=== PATIENT | female | born 1930 | race Caucasian/White ===

== ENCOUNTER 2016-06-27 13:56 | Emergency (ER) | payer OTHER ==
[~2016-06-27] VITALS: Ht 152.4 cm; Wt 75.0 kg
[~2016-06-27 13:56] MED LIST: ACET325T96 PO; ATV/1 PO; BISA10SU3 PR; EFFSR75 PO; ERGO500037 PO; GLC/500 PO; LORA10TA5 PO; LOSA25TA18 PO; LPT/40 PO; MAGN400T24 PO; MELO7.5T5 PO; MOML PO; MULTTAB PO; NSNN50; PANT40TA PO
--- NOTE | 2016-06-27 14:43 | DIAGNOSTIC IMAGING REPORT ---
CHEST ONE VIEW PORTABLE CLINICAL HISTORY: Respiratory distress. Dyspnea. COMPARISON STUDY: Chest radiograph April 21, 2013. FINDINGS: A dual lead left pacemaker and lumbar spine fusion hardware is incidentally noted. Lung volumes are diminished. No consolidation is identified. There is no evidence of pulmonary edema. There is mild cardiomegaly. IMPRESSION: 1. No acute cardiopulmonary findings. 2. Diminished lung volumes. 3. Mild cardiomegaly without evidence of pulmonary edema. Electronically signed by: Ariel Dominguez M.D. 06/27/2016 2:42 PM Dictated Date/Time: 06/27/2016 2:41 PM
[2016-06-27 14:48] VITALS: Ht 152.4 cm; Wt 75.0 kg
[2016-06-27] MEDS ORDERED: OXYB15TA12 PO (14:59)
[2016-06-27] MEDS ORDERED: NYSTCRE11 TOP (14:59)
[2016-06-27] MEDS ORDERED: TRAM-10 PO (14:59)
[2016-06-27] MEDS ORDERED: POLY335019 PO (14:59)
[2016-06-27] MEDS ORDERED: FLUT0.15 NAE (14:59)
[2016-06-27] MEDS ORDERED: ALBUAER INH (14:59)
[2016-06-27] MEDS ORDERED: IBUP600T44 PO (14:59)
[2016-06-27] MEDS ORDERED: CYAN10005 PO (14:59)
[2016-06-27] MEDS ORDERED: CHOL1000 PO (14:59)
[2016-06-27] MEDS ORDERED: CLR10 PO (14:59)
[2016-06-27] MEDS ORDERED: METF-384 PO (14:59)
[2016-06-27] MEDS ORDERED: TMF75 PO (14:59)
[2016-06-27] MEDS ORDERED: PYRI100T4 PO (14:59)
[2016-06-27 15:03] VITALS: O2SAT 96
[2016-06-27 15:18] LABS: BASO % 0.1 %; BASO ABS # 0.01 K/uL (0-0.2); COMPLETE YES; EOS % 1.8 %; HEMATOCRIT 30.1 % (37-47); IG% 0.3 %; LYMPH % 21.1 %; LYMPH ABS # 1.49 K/uL (1.2-3.4); MEAN CELL VOLUME 88.3 fL (80-100); MEAN CORPUSCULAR HEMOGLOBIN 28.4 pg (25-34); MEAN CORPUSCULAR HGB CONC 32.2 g/dl (32-36); MONO % 9.9 %; NEUT % 66.8 %; PLATELET COUNT 227 K/uL (130-400); RED BLOOD COUNT 3.41 M/uL (4.2-5.4); WHITE BLOOD COUNT 7.07 K/uL (4.8-10.8)
[2016-06-27 15:38] LABS: ALT/SGPT 28 U/L (12-78); BLOOD UREA NITROGEN 21 mg/dl (7-18); BUN/CREATININE RATIO 22.5 (10-20); CALCIUM 8.7 mg/dl (8.5-10.1); CARBON DIOXIDE 24 mmol/L (21-32); CHLORIDE 107 mmol/L (98-107); CREATININE 0.93 mg/dl (0.60-1.20); GLUCOSE 157 mg/dl (70-99); SODIUM 144 mmol/L (136-145)
[2016-06-27 15:42] LABS: ALB/GLOB RATIO 1.2 (0.9-2); ALKALINE PHOSPHATASE 92 U/L (45-117); AST/SGOT 29 U/L (15-37)
[2016-06-27 16:03] VITALS: TEMP 36.7
[2016-06-27] MEDS ORDERED: SODIUM CHLORIDE 0.9% 500ML 500 ML IV STA (16:19)
[2016-06-27 17:33] LABS: URINE APPEARANCE CLEAR (CLEAR); URINE BILIRUBIN NEG (NEG); URINE COLOR YELLOW; URINE NITRITE NEG (NEG); URINE SPECIFIC GRAVITY 1.019 (1.000-1.030); UROBILINOGEN NEG (NEG)
[2016-06-27 17:38] LABS: MANUAL MICROSCOPIC REQUIRED? NO; REVIEW REQ? NO
[2016-06-27 20:05] VITALS: BP 141/68; PULSE 84; O2SAT 94
[2016-06-27] MEDS ORDERED: ASPI81TA28 PO (21:52)
[2016-06-27] MEDS ORDERED: INSDGI SC (22:02)
[2016-06-27] MEDS ORDERED: METO-217 PO (22:05)
[2016-06-27] MEDS ORDERED: MONT1TAB3 PO (22:08)
[2016-06-27] MEDS ORDERED: LINA1CAP PO (22:09)
--- NOTE | 2016-06-27 22:59 | EMERGENCY ROOM VISIT NOTE ---
History Report prepared by Mateoibkerri: Emmie Koehler Under the Supervision of: Dr. Sam Pollock M.D. First contact with patient: 14:07 Chief Complaint: ILLNESS Stated Complaint: NAUSEA, DEEP COUGH, DIZZY, HEADACHE History of Present Illness The patient is a 86 year old female who presents to the Emergency Room with complaints of a worsening cough for the past 10 days. Her primary care doctor's office at [facility] diagnosed her with the flu 10 days ago and placed her on Tamiflu, which she last took early this morning. The Tamiflu has provided minimal relief for her symptoms. She currently complains of a "deep cough", nausea, dizziness and an intermittent headache. She notes she was told she had a fever when she saw her doctor 10 days ago, but she's not sure if she has had a fever since then. The patient is on a daily baby Aspirin but denies taking any other blood thinners. She admits to some neck pain currently, but states this is chronic for her due to "my posture". She lives alone and denies any recent sick contacts. The patient also denies LOC, chills, diaphoresis, visual changes, chest pain, breathing difficulties, vomiting, abdominal pain, back pain, melena, hematochezia, urinary symptoms, numbness, lymphadenopathy, rash, increased swelling in her legs or other complaints. 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 A total of ten systems were reviewed and were otherwise negative. Past Medical & Surgical Medical Problems: (1) ATRIOVENT BLOCK COMPLETE (2) CARPAL TUNNEL SYNDROME (3) Chronic kidney disease stage 2 (4) Coronary artery disease (5) Diabetes mellitus type 2 (6) Diverticulosis of colon without diverticulitis (7) Dyslipidemia (8) Gastroesophageal reflux disease (9) GENERAL OSTEOARTHROSIS (10) Major depressive disorder (11) Pacemaker (12) Pulmonary embolism (13) Severe sepsis (14) Urinary tract infection Surgical Problems: (1) Status post appendectomy (2) Status post cardiac pacemaker procedure Family History Cancer Diabetes mellitus Hypertension Social History Smoking Status: Never Smoker Smokeless Tobacco Use: No Alcohol Use: none Drug Use: none Marital Status: Housing Status: lives alone, assisted living Occupation Status: retired Current/Historical Medications Scheduled Aspirin (Aspirin Ec), 81 MG PO DAILY Atorvastatin (Lipitor), 40 MG PO HS Cholecalciferol (Vitamin D3), 1 TAB PO DAILY Cyanocobalamin (Vitamin B-12), 1,000 MCG PO DAILY Fluticasone Propionate (Nasal) (Flonase Allergy Relief), 2 SPRAYS KYLE BID Insulin Glargine (Lantus), 25 UNITS SC HS Linaclotide (Linzess), 145 MG PO DAILY/PRN Loratadine (Claritin), 10 MG PO DAILY Losartan Potassium (Cozaar), 25 MG PO DAILY Metformin Hcl (Glucophage), 1,000 MG PO BID Metoprolol Succinate (Toprol Xl), 50 MG PO DAILY Montelukast Sodium (Singulair), 10 MG PO DAILY Nystatin/Triamcinolone (Mycogen || ), 1 APPLN TOP BID Oseltamivir Phosphate (Tamiflu), 75 MG PO BID Oxybutynin Chloride (Ditropan Xl), 1 TAB PO DAILY Polyethylene Glycol 3350 (Miralax), 17 GM PO DAILY Pyridoxine (Vitamin B6), 50 MG PO DAILY Venlafaxine Hcl (Effexor Extended Rel), 75 MG PO DAILY Scheduled PRN Albuterol Sulfate (Proventil Hfa), 2 PUFF INH Q4H PRN for Wheezing Ibuprofen (Motrin), 600 MG PO TID PRN for Pain Lorazepam (Ativan), 1 MG PO Q8 PRN for Anxiety Tramadol (Ultram), 100 MG PO Q6 PRN for Pain Allergies Coded Allergies: Codeine (Verified Allergy, Unknown, REPORTED BY PT, 06/27/16) Gabapentin (Verified Allergy, Unknown, unknown, 06/27/16) Levodopa (Verified Allergy, Unknown, unknown, 06/27/16) Morphine and Related (Verified Allergy, Unknown, unk, 06/27/16) NSAIDs (Verified Allergy, Unknown, unknown, 06/27/16) Tramadol (Verified Allergy, Unknown, PT REPORTS, 06/27/16) Yellow Dyes (Verified Allergy, Unknown, unknown, 06/27/16) Physical Exam Vital Signs Date Time Temp Pulse Resp B/P Pulse Ox O2 Delivery O2 Flow Rate FiO2 06/27/16 20:05 84 18 141/68 94 06/27/16 18:15 72 18 144/59 96 Room Air 06/27/16 16:03 36.7 69 20 149/74 97 Room Air 06/27/16 15:13 66 06/27/16 15:11 65 20 151/65 96 Room Air 06/27/16 15:03 96 Room Air 06/27/16 14:03 36.7 71 18 116/61 96 Room Air Physical Exam GENERAL: Awake, alert, tired-appearing, in no distress HENT: Normocephalic, atraumatic. Oropharynx unremarkable. EYES: Pale conjunctiva. Sclera non-icteric. NECK: Supple. No nuchal rigidity. No meningismus. FROM. No JVD. RESPIRATORY: Clear to auscultation. CARDIAC: Regular rate, normal rhythm. Extremities warm and well perfused. Pulses equal. ABDOMEN: Soft, non-distended. No tenderness to palpation. No rebound or guarding. No masses. RECTAL: Deferred. MUSCULOSKELETAL: Chest examination reveals no tenderness. The back is symmetrical on inspection without obvious abnormality. There is no CVA tenderness to palpation. No joint edema. LOWER EXTREMITIES: Calves are equal size bilaterally and non-tender. +1 pedal edema. No discoloration. NEURO: Normal sensorium. No sensory or motor deficits noted. SKIN: No rash or jaundice noted. Medical Decision & Procedures ER Provider Diagnostic Interpretation: This X-Ray was reviewed and interpreted by myself and the radiologist. CHEST ONE VIEW PORTABLE CLINICAL HISTORY: Respiratory distress. Dyspnea. COMPARISON STUDY: Chest radiograph April 21, 2013. FINDINGS: A dual lead left pacemaker and lumbar spine fusion hardware is incidentally noted. Lung volumes are diminished. No consolidation is identified. There is no evidence of pulmonary edema. There is mild cardiomegaly. IMPRESSION: 1. No acute cardiopulmonary findings. 2. Diminished lung volumes. 3. Mild cardiomegaly without evidence of pulmonary edema. Electronically signed by: Ariel Dominguez M.D. 06/27/2016 2:42 PM Dictated Date/Time: 06/27/2016 2:41 PM Laboratory Results 06/27/16 14:45 Red Blood Count 3.41, Mean Corpuscular Volume 88.3, Mean Corpuscular Hemoglobin 28.4, Mean Corpuscular Hemoglobin Concent 32.2, Mean Platelet Volume 10.0, Neutrophils (%) (Auto) 66.8, Lymphocytes (%) (Auto) 21.1, Monocytes (%) (Auto) 9.9, Eosinophils (%) (Auto) 1.8, Basophils (%) (Auto) 0.1, Neutrophils # (Auto) 4.72, Lymphocytes # (Auto) 1.49, Monocytes # (Auto) 0.70, Eosinophils # (Auto) 0.13, Basophils # (Auto) 0.01 06/27/16 14:45 Test 06/27/16 14:45 06/27/16 16:47 06/27/16 18:17 White Blood Count 7.07 K/uL (4.8-10.8) Red Blood Count 3.41 M/uL (4.2-5.4) Hemoglobin 9.7 g/dL (12.0-16.0) Hematocrit 30.1 % (37-47) Mean Corpuscular Volume 88.3 fL (80-100) Mean Corpuscular Hemoglobin 28.4 pg (25-34) Mean Corpuscular Hemoglobin Concent 32.2 g/dl (32-36) Platelet Count 227 K/uL (130-400) Mean Platelet Volume 10.0 fL (7.4-10.4) Neutrophils (%) (Auto) 66.8 % Lymphocytes (%) (Auto) 21.1 % Monocytes (%) (Auto) 9.9 % Eosinophils (%) (Auto) 1.8 % Basophils (%) (Auto) 0.1 % Neutrophils # (Auto) 4.72 K/uL (1.4-6.5) Lymphocytes # (Auto) 1.49 K/uL (1.2-3.4) Monocytes # (Auto) 0.70 K/uL (0.11-0.59) Eosinophils # (Auto) 0.13 K/uL (0-0.5) Basophils # (Auto) 0.01 K/uL (0-0.2) RDW Standard Deviation 46.2 fL (36.4-46.3) RDW Coefficient of Variation 14.4 % (11.5-14.5) Immature Granulocyte % (Auto) 0.3 % Immature Granulocyte # (Auto) 0.02 K/uL (0.00-0.02) Anion Gap 13.0 mmol/L (3-11) Est Creatinine Clear Calc Drug Dose 40.7 ml/min Estimated GFR () 65.4 Estimated GFR (Non- 56.4 BUN/Creatinine Ratio 22.5 (10-20) Calcium Level 8.7 mg/dl (8.5-10.1) Total Bilirubin 0.4 mg/dl (0.2-1) Aspartate Amino Transf (AST/SGOT) 29 U/L (15-37) Alanine Aminotransferase (ALT/SGPT) 28 U/L (12-78) Alkaline Phosphatase 92 U/L (45-117) Troponin I < 0.015 ng/ml (0-0.045) Pro-B-Type Natriuretic Peptide 922 pg/ml (0-1800) Total Protein 6.9 gm/dl (6.4-8.2) Albumin 3.7 gm/dl (3.4-5.0) Globulin 3.2 gm/dl (2.5-4.0) Albumin/Globulin Ratio 1.2 (0.9-2) Urine Color YELLOW Urine Appearance CLEAR (CLEAR) Urine pH 5.0 (4.5-7.5) Urine Specific [place] 1.019 (1.000-1.030) Urine Protein NEG (NEG) Urine Glucose (UA) NEG (NEG) Urine Ketones TRACE (NEG) Urine Occult Blood NEG (NEG) Urine Nitrite NEG (NEG) Urine Bilirubin NEG (NEG) Urine Urobilinogen NEG (NEG) Urine Leukocyte Esterase NEG (NEG) Bedside Glucose 192 mg/dl (70-90) Laboratory results reviewed by me Medications Administered Medications (Trade) Dose Ordered Sig/Azeem Route Start Time Stop Time Status Last Admin Dose Admin Sodium Chloride (Nss 500ml) 500 ml @ 999 mls/hr Q31M STAT IV 06/27/16 16:19 06/27/16 16:49 DC 06/27/16 16:19 999 MLS/HR ECG Indication: nausea Rate (beats per minute): 67 Rhythm: normal sinus (normal sinus rhythm) Findings: nonspecific-ST abn, no acute ischemic change, no ectopy, other (Poor baseline data secondary to patient tremor) ED Course 1412: The patient was evaluated in room B9. A complete history and physical exam was performed. 1501: I updated the patient on her unremarkable x-ray results. She is resting comfortably and her son is in the room. 1619: NSS 500 ml @ 999 mls/hr IV. 1635: I reevaluated the patient. She is feeling somewhat better, and is going to try drinking some tom marvin and eating a few crackers. 1724: I reevaluated the patient. Her son is now at the bedside. She reports the tom marvin and crackers went down well and she feels ready to try a meal tray. 1820: I reevaluated the patient. She is feeling well and was able to eat a meal tray. 1855: I spoke with the patients family member. He reports the Office of Aging has already been contacted by the patients son, but no appointments have been set up just yet. 192: Nursing informed me the patient passed her ambulation trial. 1950: I reevaluated the patient. She is feeling much better. I discussed her results and discharge instructions and she verbalized complete understanding and agreement. Medical Decision Triage Nursing notes reviewed. The patient's presentation and history were concerning for weakness and an influenza-like illness Etiologies such as metabolic, infection, hypo/hyperglycemia, electrolyte abnormalities, cardiac sources, intracerebral event, toxicologic, neurologic, as well as others were entertained. The patient was evaluated. She was generally weak but nonfocal. She had a cough but was in no respiratory distress. She underwent a workup which did not reveal any significant abnormalities. She had a moderate anemia but this was relatively stable. The patient had some mild dehydration and hyperglycemia on her chemistry panel. BNP and troponin were negative. Urinalysis was unremarkable. The patient was hydrated. Clinically she was feeling much better. Her nausea and lack of appetite was resolved. The patient was hungry. She was given tom marvin crackers and did well with this. She was then given a meal. She felt significantly better after eating. She was able to ambulate without difficulty. I suspect that she was somewhat dehydrated and may have been nauseated secondary to the medication that she was taking. She certainly exhibited signs of a post-influenza syndrome. Her son says she is doing much better. She feels comfortable going home and he feels comfortable taking her. She will need close outpatient follow-up. If she worsens in any way she will be back to the Emergency Room for reevaluation. By the evaluation outlined above other emergent etiologies such as those listed in the differential, as well as others, were deemed relatively unlikely. The patient and son were informed about the findings as listed above. All questions were answered and they were very pleased with the treatment. Return instructions were outlined and the patient was discharged in stable condition. The patient was referred to her PCP for follow-up this week for a recheck of the current condition. The chart was completed utilizing [employer] Speech voice recognition software. Grammatical errors, random word insertions, pronoun errors, and incomplete sentences are an occasional consequence of this system due to software limitations, ambient noise, and hardware issues. Any formal questions or concerns about the content, text, or information contained within the body of this dictation should be directly addressed to the physician for clarification. Weakness and influenza-like syndrome Impression Primary Impression: Weakness Additional Impressions: Cough, Post-influenza syndrome Scribe Attestation The scribe's documentation has been prepared under my direction and personally reviewed by me in its entirety. I confirm that the note above accurately reflects all work, treatment, procedures, and medical decision making performed by me. Departure Information Dispostion Home / Self-Care Referrals Kash Núñez M.D. (PCP) Patient Instructions A Signature Page, My [facility] Additional Instructions Diagnosis: 1. Dehydration 2. Generalized weakness 3. Post-influenza syndrome Acetaminophen(Tylenol) may be used for fever or pain. Use 1000mg every six hours as needed. Avoid using more than 4000mg in a 24 hour period. Rest and drink plenty of fluids as tolerated. Continue current medications. Return to the ER immediately for worsening or persistent illness, chest pain, abdominal pain, vomiting, fevers, chest pains, difficulty breathing, worsening of your condition, or as needed. Follow up with your primary physician in 1-2 days for a recheck of your current condition.
== END 2016-06-27 20:09 | disposition home or self-care (01) ==
LOC: C.EDB 14:00
DX: R53.1 Weakness (principal); R05 Cough; R11.0 Nausea; R42 Dizziness and giddiness; R51 Headache; M54.2 Cervicalgia; E78.5 Hyperlipidemia, unspecified; E11.9 Type 2 diabetes mellitus without complications; N18.2 Chronic kidney disease, stage 2 (mild); I25.10 Atherosclerotic heart disease of native coronary artery without angina pectoris; F32.9 Major depressive disorder, single episode, unspecified; K21.9 Gastro-esophageal reflux disease without esophagitis; Z95.0 Presence of cardiac pacemaker; Z86.711 Personal history of pulmonary embolism; Z79.4 Long term (current) use of insulin; Z79.82 Long term (current) use of aspirin; Z79.84 Long term (current) use of oral hypoglycemic drugs; Z79.899 Other long term (current) drug therapy; Z88.5 Allergy status to narcotic agent; Z88.6 Allergy status to analgesic agent; Z88.8 Allergy status to other drugs, medicaments and biological substances

== ENCOUNTER 2017-05-01 18:29 | Emergency (ER) | payer OTHER ==
[~2017-05-01 18:29] MED LIST changes: -ACET325T96 PO; +ALBUAER INH; +ASPI81TA28 PO; -BISA10SU3 PR; +CHOL1000 PO; +CLR10 PO; +CYAN10005 PO; -ERGO500037 PO; +FLUT0.15 NAE; -GLC/500 PO; +IBUP600T44 PO; +INSDGI SC; +LINA1CAP PO; -LORA10TA5 PO; -MAGN400T24 PO; -MELO7.5T5 PO; +METF-384 PO; +METO-217 PO; -MOML PO; +MONT1TAB3 PO; -MULTTAB PO; -NSNN50; +NYSTCRE11 TOP; +OXYB15TA12 PO; -PANT40TA PO; +POLY335019 PO; +PYRI100T4 PO; +TMF75 PO; +TRAM-10 PO
[2017-05-01 18:34] VITALS: BP 125/73; TEMP 36.8; Ht 152.4 cm
[2017-05-01] MEDS ORDERED: ONDANSETRON INJ 2 MG/ML 2 ML VIAL IV STA (19:59)
[2017-05-01] MEDS ORDERED: ACETAMINOPHEN IV 100 ML IV ONE (20:15)
--- NOTE | 2017-05-01 21:05 | DIAGNOSTIC IMAGING REPORT ---
R SHOULDER MIN 2 VIEWS ROUTINE CLINICAL HISTORY: Right shoulder pain following fall. COMPARISON: None FINDINGS: There is an acute impacted mildly displaced right humeral neck fracture which extends into the humeral head and involves the greater tuberosity. Severe arthritis of the acromioclavicular joint is noted. Alignment of the glenohumeral joint appears anatomic. Pacer leads are partially imaged. IMPRESSION: Acute impacted comminuted mildly displaced right humeral neck and head fracture. Electronically signed by: Ariel Dominguez M.D. 05/01/2017 9:04 PM Dictated Date/Time: 05/01/2017 9:02 PM
--- NOTE | 2017-05-01 21:07 | DIAGNOSTIC IMAGING REPORT ---
R HUMERUS MIN 2 VIEWS ROUTINE CLINICAL HISTORY: fall; R shoulder, upper arm, elbow and forearm pain. COMPARISON: None FINDINGS: There is an acute impacted mildly displaced right humeral neck fracture which extends into the humeral head and involves the greater tuberosity. No additional fractures of the right humerus are identified. IMPRESSION: Acute impacted mildly displaced right humeral neck and head fracture. Electronically signed by: Ariel Dominguez M.D. 05/01/2017 9:06 PM Dictated Date/Time: 05/01/2017 9:04 PM
--- NOTE | 2017-05-01 21:08 | DIAGNOSTIC IMAGING REPORT ---
R FOREARM 2 VIEWS ROUTINE CLINICAL HISTORY: Right arm pain following fall. COMPARISON: None FINDINGS: No acute fracture of the right radius or ulna is identified. Evaluation is mildly compromised due to difficulty positioning. IMPRESSION: No acute fracture of the right radius or ulna. Electronically signed by: Ariel Dominguez M.D. 05/01/2017 9:07 PM Dictated Date/Time: 05/01/2017 9:06 PM
--- NOTE | 2017-05-01 21:15 | EMERGENCY ROOM VISIT NOTE ---
ED Visit Note First contact with patient: 18:59 This Patient was discussed with the physician assistant commissioner, Sam Alejandre PA-C. The pertinent historical and physical exam findings were confirmed. I agree with the studies ordered and with the interpretations of these studies. I agree with the disposition and care plan.
[2017-05-01 22:37] VITALS: PULSE 75; O2SAT 98
--- NOTE | 2017-05-02 02:27 | EMERGENCY ROOM VISIT NOTE ---
"ED Visit Note First contact with patient: 18:59 Chief Complaint: I fell last night and hurt my right shoulder. History of Present Illness: Ms. Scherer is a 87-year-old white female who was brought into the ED via wheelchair accompanied by her daughter complaining of right shoulder pain. Patient and daughter reports last night she accidentally tripped and fell onto a wooden floor striking her right arm on the floor. Patient reports before the fall she had no lightheadedness or dizziness. She reports at the time of the fall she did not strike her head or have a loss of consciousness. She reports since the fall she has had no headaches, abnormal neurological symptoms or nausea/vomiting. Patient does report a mobile x-ray was performed on her right shoulder approximately 10 hours ago; she reported the x-ray tech told her she had a fracture in her shoulder. Patient was placed in a sling prior to arrival at the hospital. Currently patient is complaining of a constant right sharp shoulder, humerus and forearm pain. Currently she rates her discomfort 10/10. Her pain is nonradiating. Her pain worsens with palpation of the humeral head, the proximal humerus, the medial epicondylar area and mid forearm. She also reports her pain worsens with all movements of the shoulder and elbow. She has not identified any alleviating factors related to the pain. She reports she has not had a medications for pain prior to arrival at the hospital. Patient denies neck pain, back pain, chest pain, shortness of breath, abdominal pain, right upper extremity weakness/numbness/tingling, previous significant or injuries to the right upper extremity. Review of Systems: As noted above in history of present illness. 8 body systems were reviewed and found to be negative as noted above. Past Medical History: Diabetes, heart area artery disease, kidney disease, dyslipidemia, GERD, diverticulosis, pulmonary embolism, osteoarthritis, AV block , depression, status post pacemaker implantation, CABG, appendectomy, hysterectomy, spinal fusion. Current Medications: Medications Dose Route/Sig Max Daily Dose Days Date Category Dose Instructions Vitamin B 12 (Cyanocobalamin) 500 Mcg Sergey 1,000 Mcg OR DAILY 10/01/09 Reported Vitamin D (Ergocalciferol) 400 Inter.unit Tab 400 Inter.unit PO DAILY 10/01/09 Reported Vitamin B6 (Pyridoxine HCl) 100 Mg Tab 100 Mg PO DAILY 4/15/10 Reported Aspirin Enteric Coated Ad (Aspirin) 81 Mg Tab 81 Mg OR BID 10/01/09 Reported Vitamin B6 (Pyridoxine HCl) 100 Mg Tab 50 Mg PO DAILY 06/27/16 Reported Claritin (Loratadine) 10 Mg Tab 10 Mg PO DAILY 06/27/16 Reported Vitamin D3 (Cholecalciferol) 1,000 Unit Tab 1 Tab PO DAILY 90 06/27/16 Reported Flonase Allergy Relief (Fluticasone Propionate (Nasal)) 50 Mcg/Act Spr 2 Sprays KYLE BID 06/27/16 Reported Vitamin B-12 (Cyanocobalamin) 1,000 Mcg Tab 1,000 Mcg PO DAILY 06/27/16 Reported Miralax (Polyethylene Glycol 3350) 1 Pow Pow 17 Gm PO DAILY 06/27/16 Reported Proventil Hfa (Albuterol Sulfate) 108 Mcg/Act Aer 2 Puff INH Q4H PRN 06/27/16 Reported Ultram (Tramadol HCl) 50 Mg Tab 100 Mg PO Q6 PRN 06/27/16 Reported Motrin (Ibuprofen) 600 Mg Tab 600 Mg PO TID PRN 06/27/16 Reported PRN Ditropan Xl (Oxybutynin Chloride) 15 Mg Tab 1 Tab PO DAILY 90 06/27/16 Reported Mycogen || (Nystatin/Triamcinolone Acetonide) Cr 1 Appln TOP BID 06/27/16 Reported Glucophage (Metformin Hcl) 1,000 Mg Tab 1,000 Mg PO BID 06/27/16 Reported Tamiflu (Oseltamivir Phosphate) 75 Mg Cap 75 Mg PO BID 06/27/16 Reported Linzess (Linaclotide) 145 Mcg Cap 145 Mg PO DAILY/PRN 01/25/14 Reported Singulair (Montelukast Sodium) 10 Mg Tab 10 Mg PO DAILY 01/25/14 Reported Toprol Xl (Metoprolol Succinate) 50 Mg Tabcr 50 Mg PO DAILY 01/25/14 Reported Lantus (Insulin Glargine) Vial 25 Units SC HS 01/25/14 Reported Aspirin Ec (Aspirin) 81 Mg Tab 81 Mg PO DAILY 01/25/14 Reported Effexor Extended Rel (Venlafaxine Hcl) 75 Mg Capcr 75 Mg PO DAILY 04/20/13 Reported Cozaar (Losartan Potassium) 25 Mg Tab 25 Mg PO DAILY 04/20/13 Reported Lipitor (Atorvastatin) 40 Mg Tab 40 Mg PO HS 04/20/13 Reported Ativan (Lorazepam) 1 Mg Tab 1 Mg PO Q8 PRN 04/20/13 Reported Allergies to Medications: Codeine, gabapentin, levodopa, morphine, NSAIDs, tramadol, yellow dye. Social History: Patient is currently retired; she feels safe in her home environment; she denies tobacco and alcohol use. Physical Examination: Vital Signs: Date Time Temp Pulse Resp B/P (MAP) Pulse Ox O2 Delivery O2 Flow Rate FiO2 05/01/17 22:37 75 18 98 Room Air 05/01/17 20:30 79 18 98 Room Air 05/01/17 18:34 36.8 82 18 125/73 97 Room Air GENERAL: 87-year-old female in mild to moderate distress due to pain, nontoxic- appearing, afebrile and hemodynamically stable. NEUROLOGICAL: Awake, alert and oriented to person, place and time. Answering questions appropriately and following commands. Cranial nerves II through XII grossly intact. Good long-term recall. Poor short-term recall. SKIN: Warm, dry and pink. No soft tissue trauma noted. HEENT: Atraumatic and normocephalic. Skull: No bony deformity, bony tenderness , depressions, swelling or ecchymosis. No raccoon's eyes or ann signs. No drainage from the ears of the nostril; no hemotympanum. Face: No bony tenderness, swelling or ecchymosis. PERRLA. EOMI without nystagmus. No malocclusion. No intraoral trauma. Airway patent. Speech is normal and clear. BACK: No tenderness over the bony cervical or thoracic spine. No bony deformity, bony crepitus, swelling or ecchymosis. No CVA tenderness. THORAX: Lungs sounds are clear to auscultation and equal bilaterally with symmetrical chest wall. No crepitus, tenderness, subcutaneous air or deformities noted. ABDOMEN: Flat, soft and nontender. Positive bowel sounds in all quadrants. RIGHT UPPER EXTREMITY: No gross bony deformities. Moderate to severe tenderness over the humeral head and proximal humerus with palpable deformity. No tenderness over the clavicle or acromioclavicular joint. No tenderness over the scapula. Range of motion exercises were not performed. Mild tenderness over the medial epicondylar area without bony deformity or crepitus. Because of her pain she refuses to do range of motion exercises. Mild tenderness over the mid radius and ulna without bony deformity, swelling or ecchymosis. I did stabilize the elbow and she was able to pronate and supinate her forearm and flex and extend her wrist. There is no tenderness throughout the wrist or the hand. Distal pulses are intact. Capillary refill is brisk. She is able to distinguish light sensations. LEFT UPPER EXTREMITY: No bony tenderness or deformities throughout the extremity. Distal neurovascular statuses are intact. LOWER EXTREMITIES: No gross bony deformities. No tenderness over the hips, knees, lower legs or ankles. ED Course: Patient is assessed as noted above. Patient's medication list was reviewed. It should be noted just prior to seeing the patient and her daughter helped her to the bathroom to urinate and when she returned to her room she became nauseated but did not vomit. It should be also noted that when I attempted to read the patient's disc of her x-rays earlier today I was not able to pull up her studies after multiple attempts. Right Forearm X-Rays: Were read by myself and the radiologist showing no acute fractures or dislocations. Right Humerus X-Rays: Were read by myself and the radiologist showing an acute impact mildly displaced right humeral head and neck fracture. Right Shoulder X-Rays: Were read by myself and the radiologist showing an acute impacted comminuted and mildly displaced right humeral neck and head fracture. Patient had an IV lock initiated and she received 4 mg of Zofran IV and 1 g of acetaminophen IV for her symptoms; patient was offered hydrocodone for her pain and refused. Patient was placed in a Ortho-Glass shoulder sterile splint and posterior elbow splint and returned to her sling. Patient's case was reviewed with Dr. Cortez; in apparently assessed the patient we agreed on diagnostic approach, treatment, disposition and plan. Patient and daughter were educated about today's findings and instructed on her treatment plan; they verbalized understanding and agreement with this plan. Clinical Impression: Acute right impacted right humeral neck and head fractures. Disposition: Patient discharged home in stable condition accompanied by her daughter; prior to departure she was reassessed and subjectively reported she was feeling much better and rated her discomfort 4/10. Plan: Comfort measures were discussed with the patient and her daughter including the use of acetaminophen or [place] for her pain, ice over the areas of pain and/or swelling and splint and sling use. Patient and daughter were encouraged to contact Dr. Landers, patient's orthopedic surgeon, tomorrow and inform them of today's ED visit and request follow-up care and treatment. Daughter did note that the patient was post Thomas follow-up appointment for a shoulder fracture in 2 days. Patient and daughter were encouraged return to the ED for uncontrolled pain, right upper extremity weakness/numbness/tingling or any new/concerning symptoms."
== END 2017-05-01 22:38 | disposition home or self-care (01) ==
LOC: C.EDB 18:30 → C.EDD 22:38
DX: S42.291A Other displaced fracture of upper end of right humerus, initial encounter for closed fracture (principal); W01.0XXA Fall on same level from slipping, tripping and stumbling without subsequent striking against object, initial encounter; E11.9 Type 2 diabetes mellitus without complications; N18.9 Chronic kidney disease, unspecified; E78.5 Hyperlipidemia, unspecified; I51.9 Heart disease, unspecified; K21.9 Gastro-esophageal reflux disease without esophagitis; K57.90 Diverticulosis of intestine, part unspecified, without perforation or abscess without bleeding; F32.9 Major depressive disorder, single episode, unspecified; M19.90 Unspecified osteoarthritis, unspecified site; Z86.711 Personal history of pulmonary embolism; Z95.0 Presence of cardiac pacemaker; Z95.1 Presence of aortocoronary bypass graft; Z90.710 Acquired absence of both cervix and uterus; Z98.1 Arthrodesis status; Z98.890 Other specified postprocedural states; Z79.4 Long term (current) use of insulin; Z79.82 Long term (current) use of aspirin; Z79.899 Other long term (current) drug therapy; Z88.5 Allergy status to narcotic agent; Z88.8 Allergy status to other drugs, medicaments and biological substances; Z91.09 Other allergy status, other than to drugs and biological substances

== ENCOUNTER 2018-08-29 20:47 | Inpatient (IN) ==
[2018-08-29] MEDS ORDERED: ACETAMINOPHEN 325 MG TAB PO PRN (23:04)
[2018-08-29] MEDS ORDERED: DEXTROSE 50% 50 ML SYRINGE IV PRN (23:06)
[2018-08-29] MEDS ORDERED: CARBOHYDRATES FOR HYPOGLYCEMIA PO PRN (23:06)
[2018-08-29] MEDS ORDERED: GLUCAGON FOR INJ 1 MG VIAL SQ PRN (23:06)
[2018-08-29] MEDS ORDERED: GLUCOSE 40% GEL 15 GM TUBE PO PRN (23:06)
[2018-08-29] MEDS ORDERED: GLUCOSE 10 TABS/TUBE PO PRN (23:06)
[2018-08-29] MEDS ORDERED: MoRPHine SULFATE 2 MG/ML CARP IV PRN (23:08)
[2018-08-29] MEDS ORDERED: PROCHLORPERAZINE 5 MG in SYRINGE 4 ML IV PRN (23:08)
[2018-08-29] MEDS ORDERED: TRAMADOL HCL 50 MG TABLET PO PRN (23:08)
--- NOTE | 2018-08-29 23:10 | History & Physical Report ---
Date of Service August 29, 2018 Assessment & Plan (1) Hip fracture, left: Secondary to mechanical fall Nondisplaced on initial XR read chronic diastolic heart failure (EF 55-60%, TTE 2013), patient euvolemic CAD status post CABG/PVD as per records complete heart block status post PPM history PAF, patient currently NSR (not on anticoagulation secondary to recurrent multiple falls) -Stable cardiac signs and symptoms as per recent outpatient [facility] follow-up visit last March 2018 DM 2, insulin requiring, well-controlled as of recent outpatient hemoglobin A1c of 6.8 last December 2017 chronic anemia, hemoglobin at baseline History of pulmonary embolism as per records Borderline hyperkalemia [facility] Orthopedics consult left hip fracture N.p.o. except meds until seen by Orthopedics RE possible surgery Monitor serum potassium, hold home Losartan for now given borderline hyperk alemia Basal insulin adjusted for n.p.o. status, ISS BG goal 140-180, patient due for hemoglobin A1c recheck PT OT eval DVT prophylaxis. SCDs for now until need for surgical procedure ascertained Recommend pharmacologic anticoagulation with Lovenox 30 mg SQ daily once bleeding risk is deemed to be minimal and negligible pending Orthopedics evaluation. Full code History of Present Illness Chief Complaint: Left hip fracture Primary Care Provider: Kash Núñez History obtained from patient and records. Medical history significant for chronic diastolic heart failure (EF 55-60%, TTE 2013), CAD status post CABG, complete heart block status post PPM, history PAF (not on anticoagulation secondary to recurrent multiple falls S per records), PVD, DM 2, insulin requiring, history PE as per records, chronic anemia, baseline hemoglobin 9, essential tremors. Recent confinement April 2013 for respiratory failure, sepsis. Today patient had a mechanical fall causing her to land on her left side. Patient subsequently noted excruciating left hip pain. No chest pain, no S OB, no syncope, no headache. Patient brought to [facility] ER. Left hip x-ray showed nondisplaced intertrochanteric left femoral fracture. Patient family requested for patient to be transferred to [facility] for Orthopedics evaluation. Medical History as above Surgical History : CABG, PPM, cataract surgery, appendectomy, back surgery, laser brachioplasty, bladder bladder/vaginal/rectocele repair, sternal debridement, SIMON Family History : Heart disease Personal/Social history : Non-smoker, no EtOH intake, retired [employer], [facility] assisted living [facility] resident Functionality: No unusual chest pain, S OB at rest/on exertion, during usual ADLs Allergies Allergy/AdvReac Type Severity Reaction Status Date / Time codeine Allergy Unknown REPORTED Verified 08/30/18 00:35 BY PT gabapentin Allergy Unknown unknown Verified 08/30/18 00:35 levodopa Allergy Unknown unknown Verified 08/30/18 00:35 morphine Allergy Unknown unk Verified 08/29/18 21:22 NSAIDS (Non-Steroidal Allergy Unknown unknown Verified 08/30/18 00:35 Anti-Inflamma tramadol Allergy Unknown PT REPORTS Verified 08/30/18 00:35 yellow dye Allergy Unknown unknown Verified 08/29/18 21:22 Home Medications Home Medications Medication Instructions Recorded Confirmed Type linaclotide [Linzess] 145 mcg PO DAILY PRN 08/29/18 08/29/18 History nystatin 1 applic TOPICAL BID 08/29/18 08/29/18 History omeprazole 20 mg PO QAM 08/29/18 08/29/18 History ranitidine HCl 150 mg PO DAILY 08/29/18 08/30/18 History ranitidine HCl 150 mg PO DAILY PRN 08/29/18 08/30/18 History acetaminophen 650 mg PO Q4 PRN MDD 3g/24hr 08/30/18 08/30/18 History aspirin [Aspir-81] 81 mg PO DAILY 08/30/18 08/30/18 History atorvastatin 40 mg PO DAILY 08/30/18 08/30/18 History bisacodyl 5 mg PO DAILY 08/30/18 08/30/18 History bisacodyl [Dulcolax (bisacodyl)] 10 mg MD DAILY PRN MDD 1 supp per 08/30/18 08/30/18 History week cholecalciferol (vitamin D3) 2,000 unit PO DAILY 08/30/18 08/30/18 History [Vitamin D3] diclofenac sodium 4 g TOPICAL BID 08/30/18 08/30/18 History ferrous fumarate-vitamin C 1 tab PO DAILY 08/30/18 08/30/18 History [[place]-Sequels (iron-vit c)] fluticasone [Flonase Allergy 2 spray INTRANASAL DAILY 08/30/18 08/30/18 History Relief] ibuprofen 600 mg PO TID PRN 08/30/18 08/30/18 History insulin glargine [Lantus U-100 16 unit SUBCUT HS 08/30/18 08/30/18 History Insulin] loratadine 10 mg PO HS 08/30/18 08/30/18 History losartan 25 mg PO DAILY 08/30/18 08/30/18 History magnesium hydroxide [Milk of 15 - 30 ml PO DAILY PRN 08/30/18 08/30/18 History Magnesia] menthol-zinc oxide 1 applic TOPICAL TID 08/30/18 08/30/18 History metformin 1,000 mg PO BIDM 08/30/18 08/30/18 History metoprolol succinate 50 mg PO DAILY 08/30/18 08/30/18 History montelukast 10 mg PO DAILY 08/30/18 08/30/18 History nystatin 1 applic TOPICAL BID PRN 08/30/18 08/30/18 History nystatin 1 applic TOPICAL TID 08/30/18 08/30/18 History nystatin-triamcinolone 1 applic TOPICAL BID 08/30/18 08/30/18 History oxybutynin chloride 15 mg PO DAILY 08/30/18 08/30/18 History polyethylene glycol 3350 [Miralax] 17 g PO DAILY PRN 08/30/18 08/30/18 History polyvinyl alcohol-povidon(PF) 1 drp OPHTHALMIC (EYE) UD PRN 08/30/18 08/30/18 History [Refresh Classic (PF)] sennosides-docusate sodium 2 tab PO HS 08/30/18 08/30/18 History [Senna-S] venlafaxine 75 mg PO DAILY 08/30/18 08/30/18 History white petrolatum-mineral oil 1 applic OPR QPM 08/30/18 08/30/18 History Past Med/Surg History Social History Communication Ability: Effective marital status: / Review of Systems As per HPI, all 10 systems reviewed, all other ROS negative Physical Exam Vital Signs (Past 24 Hours): Last Vital Signs Temp 36.7 C 08/29/18 20:43 Pulse 72 08/29/18 20:43 Resp 16 08/29/18 20:43 BP 157/77 H 08/29/18 20:43 Pulse Ox 97 08/29/18 20:43 Physical Exam: GENERAL: Comfortable, pleasant, no respiratory distress SKIN: Pallor, warm HEENT: Pale palpebral conjunctivae, no ptosis, chronic facial asymmetry, dry buccal mucosa NECK : Supple, no tenderness CHEST : CTA, sternal scar, no tenderness HEART : RRR, no obvious murmurs ABDOMEN: Some distention, nontender EXTREMITIES : Left hip supported by pillow, left hip tenderness, no other conspicuous deformities noted NEUROLOGIC : Coherent, chronic facial asymmetry, chronic rest tremors Results & Data Laboratory Results Laboratory Results WBC 9.25 K/uL (4.8-10.8) 08/30/18 00:07 RBC 3.27 M/uL (4.2-5.4) L 08/30/18 00:07 Hgb 9.7 g/dL (12.0-16.0) L 08/30/18 00:07 Hct 29.6 % (37-47) L 08/30/18 00:07 MCV 90.5 fL (80-100) 08/30/18 00:07 MCH 29.7 pg (25-34) 08/30/18 00:07 MCHC 32.8 g/dL (32-36) 08/30/18 00:07 RDW Std Deviation 43.1 fL (36.4-46.3) 08/30/18 00:07 RDW Coeff of [place] 13.2 % (11.5-14.5) 08/30/18 00:07 Plt Count 152 K/uL (130-400) 08/30/18 00:07 MPV 10.3 fL (7.4-10.4) 08/30/18 00:07 Immature Gran % (Auto) 0.2 % 08/30/18 00:07 Neut % (Auto) 64.8 % 08/30/18 00:07 Lymph % (Auto) 21.3 % 08/30/18 00:07 [place] % (Auto) 11.5 % 08/30/18 00:07 Eos % (Auto) 2.1 % 08/30/18 00:07 Baso % (Auto) 0.1 % 08/30/18 00:07 Immature Gran # (Auto) 0.02 K/uL (0.00-0.02) 08/30/18 00:07 Neut # (Auto) 6.00 K/uL (1.4-6.5) 08/30/18 00:07 Lymph # (Auto) 1.97 K/uL (1.2-3.4) 08/30/18 00:07 [place] # (Auto) 1.06 K/uL (0.11-0.59) H 08/30/18 00:07 Eos # (Auto) 0.19 K/uL (0-0.5) 08/30/18 00:07 Baso # (Auto) 0.01 K/uL (0-0.2) 08/30/18 00:07 APTT 30.6 Seconds (21.0-31.0) 08/30/18 00:07 PTT Ratio 1.1 08/30/18 00:07 Sodium 139 mmol/L (136-145) 08/30/18 00:07 Potassium 5.1 mmol/L (3.5-5.1) 08/30/18 00:07 Chloride 104 mmol/L (98-107) 08/30/18 00:07 Carbon Dioxide 30 mmol/L (21-32) 08/30/18 00:07 Anion Gap 5.0 (3-11) 08/30/18 00:07 BUN 23 mg/dl (7-18) H 08/30/18 00:07 Creatinine 1.00 mg/dl (0.6-1.2) 08/30/18 00:07 Est Cr Clr Drug Dosing Not Reportable 08/30/18 00:07 Est GFR ( Amer) 59.1 08/30/18 00:07 Est GFR (Non-Af Amer) 51.0 08/30/18 00:07 BUN/Creatinine Ratio 23.0 (10-20) H 08/30/18 00:07 Glucose 175 mg/dl (70-99) H 08/30/18 00:07 POC Glucose 187 (70-99) H 08/30/18 00:25 Calcium 8.6 mg/dl (8.5-10.1) 08/30/18 00:07 Total Bilirubin 0.3 mg/dl (0.2-1) 08/30/18 00:07 AST 14 U/L (15-37) L 08/30/18 00:07 ALT 16 U/L (12-78) 08/30/18 00:07 Alkaline Phosphatase 86 U/L (45-117) 08/30/18 00:07 Total Protein 6.3 gm/dl (6.4-8.2) L 08/30/18 00:07 Albumin 3.6 gm/dl (3.4-5.0) 08/30/18 00:07 Globulin 2.7 gm/dl (2.5-4.0) 08/30/18 00:07 Albumin/Globulin Ratio 1.3 (0.9-2) 08/30/18 00:07 Diagnostic Findings (From [facility] ) CT head: Cerebral atrophy, bilateral chronic maxillary sinusitis Left hip x-ray: Osteoporosis, oblique intertrochanteric left femoral fracture, nondisplaced Chest x-ray as per my interpretation: Atelectasis EKG as per my interpretation rate 75, NSR, LAD, LAFB, T wave flattening septal leads
[2018-08-29] MEDS ORDERED: INSULIN ASPART 100 UNITS/ML 3 ML PEN SC SCH (23:45)
[2018-08-29] MEDS ORDERED: HYDROmorphone INJ 0.5 MG/0.5 ML SYR IV PRN (23:58)
[2018-08-29] MEDS ORDERED: OXYCODONE HCL IR 5 MG TAB (IMMEDIATE RELEASE) PO PRN (23:58)
[2018-08-30 00:20] LABS: Basophils # (auto) 0.01 K/uL (0-0.2); Basophils % (auto) 0.1 %; Eosinophils # (auto) 0.19 K/uL (0-0.5); Eosinophils % (auto) 2.1 %; Hematocrit (blood only) 29.6 % (37-47); Hemoglobin 9.7 g/dL (12.0-16.0); Immature Granulocytes # (auto) 0.02 K/uL (0.00-0.02); Immature Granulocytes % (auto) 0.2 %; Lymphocytes # (auto) 1.97 K/uL (1.2-3.4); Lymphocytes % (auto) 21.3 %; Mean Corpuscular Hgb Conc 32.8 g/dL (32-36); Mean Corpuscular Volume 90.5 fL (80-100); Mean Platelet Volume 10.3 fL (7.4-10.4); Monocytes # (auto) 1.06 K/uL (0.11-0.59); Monocytes % (auto) 11.5 %; Neutrophils % (auto) 64.8 %; Platelet Count 152 K/uL (130-400); RDW Coefficient of Variation 13.2 % (11.5-14.5); RDW Standard Deviation 43.1 fL (36.4-46.3); Red Blood Count 3.27 M/uL (4.2-5.4); White Blood Count 9.25 K/uL (4.8-10.8)
[2018-08-30 00:41] LABS: Alanine Aminotransferase 16 U/L (12-78); Albumin Level 3.6 gm/dl (3.4-5.0); Aspartate Aminotransferase 14 U/L (15-37); Blood Urea Nitrogen 23 mg/dl (7-18); Calcium 8.6 mg/dl (8.5-10.1); Carbon Dioxide 30 mmol/L (21-32); Chloride 104 mmol/L (98-107); Est GFR (African American) 59.1; Glucose 175 mg/dl (70-99); Potassium 5.1 mmol/L (3.5-5.1); Sodium 139 mmol/L (136-145)
[2018-08-30 00:44] LABS: Albumin Globulin Ratio 1.3 (0.9-2); Alkaline Phosphatase 86 U/L (45-117); Bilirubin,Total 0.3 mg/dl (0.2-1); Globulin 2.7 gm/dl (2.5-4.0); Total Protein 6.3 gm/dl (6.4-8.2)
[2018-08-30 00:54] LABS: Partial Thromboplastin Ratio 1.1; Partial Thromboplastin Time 30.6 Seconds (21.0-31.0)
[2018-08-30] MEDS ORDERED: Nursing to Pharmacy Communication ONE (01:31)
[2018-08-30] MEDS: SODIUM CHLORIDE 0.9% 1000ML 1,000 ML IV SCH ×2 (01:53→23:08)
[2018-08-30] MEDS ORDERED: ARTIFICIAL TEARS OP PRN (02:30)
[2018-08-30] MEDS ORDERED: INSULIN GLARGINE SOLOSTAR 100 UNITS/ML 3 ML PEN SC ONE (02:30)
[2018-08-30] MEDS: HYDROCODONE/ACETAMOPHEN 5/325MG TAB PO PRN ×2 (02:43→16:51)
[2018-08-30] MEDS: INSULIN ASPART 100 UNITS/ML 3 ML PEN SC SCH ×4 (05:40→21:13)
[2018-08-30 06:37] LABS: Estimated Average Glucose 163 mg/dl; Hemoglobin A1C 7.3 % (4.5-5.6)
--- NOTE | 2018-08-30 06:59 | XRay Report ---
XR chest 1V portable CLINICAL HISTORY: fall COMPARISON STUDY: Chest radiograph June 27, 2016. FINDINGS: Old proximal right humeral deformity is incidentally noted. There is a dual lead left subcl jamin pacemaker and median sternotomy wires. Lung volumes are diminished. This is unchanged. There is no pneumothorax or pleural effusion. There is no consolidation to suggest pneumonia and there is no evidence for pulmonary edema. Cardiomediastinal silhouette is stable with suspected cardiomegaly. IMPRESSION: No acute cardiopulmonary findings. Low lung volumes which is unchanged. Electronically signed by: Ariel Dominguez M.D. 08/30/2018 6:58 AM
[2018-08-30] MEDS ORDERED: POLYETHYLENE (MIRALAX) 17 GM PACK PO PRN (09:00)
[2018-08-30] MEDS: LINZESS~ORDER AWAITING ACTION SCH ×2 (09:00→15:59)
[2018-08-30] MEDS: VENLAFAXINE HCL XR 75 MG CAPXR PO SCH (09:04)
[2018-08-30] MEDS: MONTELUKAST SODIUM 10 MG TABLET PO SCH (09:04)
[2018-08-30] MEDS: METOPROLOL SUCC 50MG EXT REL TAB PO SCH (09:05)
[2018-08-30] MEDS: ATORVASTATIN 40 MG TAB PO SCH (09:05)
[2018-08-30] MEDS: FLUTICASONE PROPIONATE NA SPR 16 GM BTL SCH (09:05)
[2018-08-30] MEDS: ASPIRIN 81 MG ECTAB PO SCH (09:06)
[2018-08-30] MEDS: OXYBUTYNIN CHLORIDE XL 5 MG TABCR PO SCH (09:06)
[2018-08-30] MEDS: FERROUS FUMARATE/ASCORBIC ACID 65 MG CAPCR PO SCH (09:07)
[2018-08-30] MEDS: PANTOprazole 40 MG TAB PO SCH (09:08)
[2018-08-30] MEDS: BISACODYL 5 MG TABEC PO SCH (09:10)
--- NOTE | 2018-08-30 14:43 | XRay Report ---
XR hip LT min 2V CLINICAL HISTORY: Left hip pain status post trauma COMPARISON: 10/04/2011 DISCUSSION: 2 views reveal a nondisplaced intertrochanteric left hip fracture. There is no dislocatio n. IMPRESSION: Nondisplaced intertrochanteric left hip fracture. Electronically signed by: Javi Edge M.D. 08/30/2018 2:42 PM
[2018-08-30] MEDS ORDERED: HydrALAZINE HCL 20 MG/ML VIAL IV PRN (15:38)
[2018-08-30] MEDS ORDERED: SODIUM CHLORIDE 0.9% 250 ML IV PRN (20:01)
--- NOTE | 2018-08-30 20:01 | Anesthesiology Consultation ---
Date of Service August 30, 2018 Assessment & Plan Chart Review Chart Review: Pending: Refer to Additional Notes / Consult section and Patient NOT seen in Pre Admission Testing Consults Requested cardiac ASA ASA4 History Surgery Operation Date: 08/31/18 07:00 Proposed Procedures p Left Hip Troch Nail - Sam Nunez DO Height/Weight Weight: 68.5 kg Allergies Allergy/AdvReac Type Severity Reaction Status Date / Time codeine Allergy Unknown REPORTED Verified 08/30/18 00:35 BY PT gabapentin Allergy Unknown unknown Verified 08/30/18 00:35 levodopa Allergy Unknown unknown Verified 08/30/18 00:35 morphine Allergy Unknown unk Verified 08/29/18 21:22 NSAIDS (Non-Steroidal Allergy Unknown unknown Verified 08/30/18 00:35 Anti-Inflamma tramadol Allergy Unknown PT REPORTS Verified 08/30/18 00:35 yellow dye Allergy Unknown unknown Verified 08/29/18 21:22 Medications Home Medications Medication Instructions Recorded Confirmed Last Taken linaclotide [Linzess] 145 mcg PO DAILY PRN 08/29/18 08/29/18 Unknown nystatin 1 applic TOPICAL BID 08/29/18 08/29/18 Unknown omeprazole 20 mg PO QAM 08/29/18 08/29/18 Unknown ranitidine HCl 150 mg PO DAILY 08/29/18 08/30/18 Unknown ranitidine HCl 150 mg PO DAILY PRN 08/29/18 08/30/18 Unknown acetaminophen 650 mg PO Q4 PRN MDD 3g/24hr 08/30/18 08/30/18 Unknown aspirin [Aspir-81] 81 mg PO DAILY 08/30/18 08/30/18 Unknown atorvastatin 40 mg PO DAILY 08/30/18 08/30/18 Unknown bisacodyl 5 mg PO DAILY 08/30/18 08/30/18 Unknown bisacodyl [Dulcolax (bisacodyl)] 10 mg UT DAILY PRN MDD 1 supp per 08/30/18 08/30/18 Unknown week cholecalciferol (vitamin D3) 2,000 unit PO DAILY 08/30/18 08/30/18 Unknown [Vitamin D3] diclofenac sodium 4 g TOPICAL BID 08/30/18 08/30/18 Unknown ferrous fumarate-vitamin C 1 tab PO DAILY 08/30/18 08/30/18 Unknown [[place]is-Sequels (iron-vit c)] fluticasone [Flonase Allergy 2 spray INTRANASAL DAILY 08/30/18 08/30/18 Unknown Relief] ibuprofen 600 mg PO TID PRN 08/30/18 08/30/18 Unknown insulin glargine [Lantus U-100 16 unit SUBCUT HS 08/30/18 08/30/18 Unknown Insulin] loratadine 10 mg PO HS 08/30/18 08/30/18 Unknown losartan 25 mg PO DAILY 08/30/18 08/30/18 Unknown magnesium hydroxide [Milk of 15 - 30 ml PO DAILY PRN 08/30/18 08/30/18 Unknown Magnesia] menthol-zinc oxide 1 applic TOPICAL TID 08/30/18 08/30/18 Unknown metformin 1,000 mg PO BIDM 08/30/18 08/30/18 Unknown metoprolol succinate 50 mg PO DAILY 08/30/18 08/30/18 Unknown montelukast 10 mg PO DAILY 08/30/18 08/30/18 Unknown nystatin 1 applic TOPICAL BID PRN 08/30/18 08/30/18 Unknown nystatin 1 applic TOPICAL TID 08/30/18 08/30/18 Unknown nystatin-triamcinolone 1 applic TOPICAL BID 08/30/18 08/30/18 Unknown oxybutynin chloride 15 mg PO DAILY 08/30/18 08/30/18 Unknown polyethylene glycol 3350 [Miralax] 17 g PO DAILY PRN 08/30/18 08/30/18 Unknown polyvinyl alcohol-povidon(PF) 1 drp OPHTHALMIC (EYE) UD PRN 08/30/18 08/30/18 Unknown [Refresh Classic (PF)] sennosides-docusate sodium 2 tab PO HS 08/30/18 08/30/18 Unknown [Senna-S] venlafaxine 75 mg PO DAILY 08/30/18 08/30/18 Unknown white petrolatum-mineral oil 1 applic OPR QPM 08/30/18 08/30/18 Unknown Active Medications Generic Name Dose Route Start Last Admin Trade Name Freq PRN Reason Stop Dose Admin Hydrocodone Bitart/Acetaminophen 1 tab 08/30/18 00:57 08/30/18 16:51 [place] 5/325 PO 09/13/18 00:56 1 tab Q4H PRN Administration Pain Aspirin 81 mg 08/30/18 09:00 08/30/18 09:06 Ecotrin Ectab PO 09/29/18 08:59 81 mg DAILY MATTHEW Administration Atorvastatin Calcium 40 mg 08/30/18 09:00 08/30/18 09:05 Lipitor PO 09/29/18 08:59 40 mg DAILY MATTHEW Administration Bisacodyl 5 mg 08/30/18 09:00 08/30/18 09:10 Dulcolax PO 09/29/18 08:59 5 mg DAILY MATTHEW Administration Docusate Sodium/Ferrous Fumarate 200 mg 08/30/18 09:00 08/30/18 09:07 Clovis-Sequels PO 09/29/18 08:59 Not Given DAILY MATTHEW Fluticasone Propionate 2 sprays 08/30/18 09:00 08/30/18 09:05 Flonase NA 09/29/18 08:59 2 sprays DAILY MATTHEW Administration Hydralazine HCl 5 mg 08/30/18 15:38 08/30/18 15:59 Hydralazine Hcl IV 09/29/18 15:37 5 mg Q6H PRN Administration SBP above 165 Sodium Chloride 1,000 mls @ 50 mls/hr 08/30/18 01:30 08/30/18 14:50 Nss 1000ml IV 09/29/18 01:29 50 mls/hr .Q20H MATTHEW Infusion Insulin Aspart 0 units 08/30/18 17:00 08/30/18 17:59 Novolog Flexpen SC 09/29/18 16:59 Not Given ACHS MATTHEW Metoprolol Succinate 50 mg 08/30/18 09:00 08/30/18 09:05 Toprol Xl PO 09/29/18 08:59 50 mg DAILY MATTHEW Administration Miscellaneous 1 ea 08/30/18 08:00 08/30/18 15:59 Order Awaiting Action N/A 09/29/18 07:59 Not Given QS MATTHEW Montelukast Sodium 10 mg 08/30/18 09:00 08/30/18 09:04 Singulair PO 09/29/18 08:59 10 mg DAILY MATTHEW Administration Oxybutynin Chloride 15 mg 08/30/18 09:00 08/30/18 09:06 Ditropan Xl PO 09/29/18 08:59 15 mg DAILY MATTHEW Administration Pantoprazole Sodium 40 mg 08/30/18 09:00 08/30/18 09:08 Protonix PO 09/29/18 08:59 40 mg DAILY MATTHEW Administration Ranitidine HCl 150 mg 08/30/18 09:00 08/30/18 09:04 Zantac PO 09/29/18 08:59 150 mg DAILY MATTHEW Administration Venlafaxine HCl 75 mg 08/30/18 09:00 08/30/18 09:04 Effexor Extended Release PO 09/29/18 08:59 75 mg DAILY MATTHEW Administration Past Medical History Medical History Afib Anemia CAD (coronary artery disease) CKD (chronic kidney disease) stage 2, GFR 60-89 ml/min Cystocele Diabetic nephropathy Diabetic neuropathy Diabetic retinopathy Encounter for screening colonoscopy GERD (gastroesophageal reflux disease) HLD (hyperlipidemia) HTN (hypertension) Heart block atrioventricular IDDM (insulin dependent diabetes mellitus) Pacemaker Vertigo Past Surgical History Surgical History History of appendectomy History of cardiac cath History of esophagogastroduodenoscopy (EGD) Hx of CABG S/P SIMON (total abdominal hysterectomy) Past Anesthesia History No Hx of Anesthesia Complications and No Family Hx of Anesthesia Complications History of PONV No Motion Sickness Screening History of Motion Sickness: Yes Social History Smoking Status: Unknown if ever smoked Exercise / Class Metabolic Activity III < 4 Walking/Shop/Light housework Physical Exam Vital Signs Last Vital Signs Temp 37 C 08/30/18 15:28 Pulse 69 08/30/18 15:28 Resp 16 08/30/18 15:28 BP 171/82 H 08/30/18 16:53 Pulse Ox 97 08/30/18 15:28 Testing Electrocardiogram Date: 08/30/18 Findings: + NSR @ (at 78;anter. mi,age ?) Chest X-Ray Date: 08/29/18 Findings: + NAD Echocardiogram Date: 04/20/13 EF: 55 LV Function: normal RWMA: + none Other Findings: + LVH (mild) and + diastolic dysfunction (grade 1) Valvular Disease: + no significant valvular disease Laboratory Results 08/30/18 00:07 08/30/18 00:07 Blood Type O Positive 08/30/18 00:07 Antibody Screen NEGATIVE 08/30/18 00:07 APTT 30.6 Seconds (21.0-31.0) 08/30/18 00:07 Hemoglobin A1c 7.3 % (4.5-5.6) H 08/30/18 00:07 08/30/18 08/30/18 08/30/18 17:17 12:02 12:01 POC Glucose 125 H 153 H 212 H
--- NOTE | 2018-08-30 20:29 | Consultation Report ---
DATE OF ADMISSION: 08/29/2018 CHIEF COMPLAINT: Left hip pain. HISTORY OF PRESENT ILLNESS: Janna is delightful. I have known her for 4-5 years for a lumbar spine issue. She suffered a ground level fall, mechanical fall, and suffered an intertrochanteric fracture of the left hip. It is essentially nondisplaced. PAST MEDICAL HISTORY: Positive for heart failure, coronary artery disease, diabetes, anemia, pulmonary emboli. PAST SURGICAL HISTORY: Includes cataract, appendectomy, lumbar spine, laser surgery, and CABG surgery. FAMILY HISTORY: Heart disease. SOCIAL HISTORY: Nonsmoker, non-ETOH user. ALLERGIES: NUMEROUS INCLUDING CODEINE, GABAPENTIN AND MORPHINE. MEDICATIONS: Number greater than 25. I have not dictated on those. PHYSICAL EXAMINATION: GENERAL: She is alert, oriented, and pleasant. She does remember me from the office. She is 88. VITAL SIGNS: Afebrile. Blood pressure 130/80, pulse 80, respirations 16. HEENT: Pupils are reactive to light and accommodation. HEENT examination essentially normal. SKIN: Clean, dry, and warm. HEART: Regular rate and rhythm. No murmurs. ABDOMEN: Soft, nontender. EXTREMITIES: Left hip is supported by a pillow. She has pain with flexion, extension, but no gross shortening. No conspicuous deformity. NEUROLOGIC: Intact. IMAGING DATA: X-rays demonstrated nondisplaced intertrochanteric fracture of the hip. IMPRESSION: Intertrochanteric fracture of left hip. PLAN: Includes an open reduction and internal fixation of the left hip tomorrow at [facility]. HAKAN
[2018-08-30] MEDS ORDERED: INSULIN GLARGINE SOLOSTAR 100 UNITS/ML 3 ML PEN SC SCH (21:00)
[2018-08-30] MEDS ORDERED: LORATADINE 10 MG TAB PO SCH (21:00)
[2018-08-30] MEDS ORDERED: DOCUSATE SODIUM/SENNA 50/8.6MG TAB PO SCH (21:00)
--- NOTE | 2018-08-30 22:18 | Hospitalist Progress Note ---
Date of Service August 30, 2018 Assessment & Plan (1) Hip fracture, left: Secondary to mechanical fall Left Xray hip xray showed non displaced intertrochanteric left hip fracture. Pain control Case discussed with Ortho, plan to take to OR tomorrow denies any chest pain and SOB has a Functional capacity with a METS 4 before the injury Major risks discussed with patient such as bleeding, infection and Stable from cardiac standpoint as per recent outpatient [facility] Cardiology visit last March 2018 OK to proceed with procedure NPO after midnight Hx Chronic diastolic heart failure Asymptomatic No sign of heart failure EF 55-60%, TTE 2013) Stable CAD status post CABG/PVD Continue Statin and metoprolol Will hold aspirin today Denies any chest pain Complete heart block status post PPM Hx PAF currently NSR not on anticoagulation secondary to recurrent multiple falls Rate controlled with metoprolol DM 2 Hemoglobin A1c of 6.8 last December 2017 Will check Hba1c Monitor BS Chronic anemia hemoglobin at baseline DVT px on SCDS CODE STATUS FULL CODE Subjective Pt was seen and examined Lying in bed with no distress with daughter at bedside Pt said that pain is about 2/10 She denies any chest pain, palpitation, dizziness and SOB Physical Exam Vital Signs (Past 24 Hours): Last Vital Signs Temp 37 C 08/30/18 15:28 Pulse 69 08/30/18 15:28 Resp 16 08/30/18 15:28 BP 145/66 H 08/30/18 21:29 Pulse Ox 97 08/30/18 15:28 Physical Exam: General- No acute distress Head- atraumatic Eyes- PERRL, EOMI, ENT- oropharynx clear Neck- supple, no JVD Lungs-No wheezing Heart- regular rhythm Abdomen- normal bowel sounds, soft Extremities- no calf tenderness, Left hip pain Neuro- alert, oriented x 3; PERRL, EOMI; no facial palsy Skin- warm & dry
[2018-08-31] MEDS: LINZESS~ORDER AWAITING ACTION SCH ×3 (00:08→16:01)
[2018-08-31] MEDS ORDERED: Nursing to Pharmacy Communication ONE (01:21)
[2018-08-31 05:02] LABS: BUN Creatinine Ratio 21.2 (10-20); Blood Urea Nitrogen 21 mg/dl (7-18); Calcium 8.3 mg/dl (8.5-10.1); Carbon Dioxide 28 mmol/L (21-32); Chloride 105 mmol/L (98-107); Est GFR (African American) 59.1; Glucose 130 mg/dl (70-99); Potassium 4.1 mmol/L (3.5-5.1); Sodium 137 mmol/L (136-145)
[2018-08-31] MEDS: INSULIN ASPART 100 UNITS/ML 3 ML PEN SC SCH ×4 (06:03→23:33)
[2018-08-31] MEDS: OXYBUTYNIN CHLORIDE XL 5 MG TABCR PO SCH (08:39)
[2018-08-31] MEDS: ASPIRIN 81 MG ECTAB PO SCH (08:45)
[2018-08-31] MEDS: BISACODYL 5 MG TABEC PO SCH (08:45)
[2018-08-31] MEDS: FERROUS FUMARATE/ASCORBIC ACID 65 MG CAPCR PO SCH (08:46)
[2018-08-31] MEDS: VENLAFAXINE HCL XR 75 MG CAPXR PO SCH (08:46)
[2018-08-31] MEDS: FLUTICASONE PROPIONATE NA SPR 16 GM BTL SCH (08:48)
[2018-08-31] MEDS: PANTOprazole 40 MG TAB PO SCH (08:49)
[2018-08-31] MEDS: MONTELUKAST SODIUM 10 MG TABLET PO SCH (08:49)
[2018-08-31] MEDS: ATORVASTATIN 40 MG TAB PO SCH (08:49)
[2018-08-31] MEDS: METOPROLOL SUCC 50MG EXT REL TAB PO SCH (08:50)
--- NOTE | 2018-08-31 10:51 | Consultation Report ---
DATE OF CONSULTATION: 08/31/2018 INPATIENT CARDIOLOGY CONSULTATION CONSULTATION REQUESTED BY: Dr. Gayle. REASON FOR CONSULTATION: Preop risk assessment, status post broken hip. HISTORY OF PRESENT ILLNESS: Mrs. Scherer is a very pleasant 88-year-old woman who normally follows very closely with Jayesh Dominique of our cardiology practice. She presented to [facility] on 08/29/2018 after a self-reported fall at home. The patient states that she was in her normal state of health when she just lost her balance. She fell down on her left side particularly on her left buttocks, and after a fall, had immediate severe left-sided hip pain along with left arm pain. The patient was initially brought into [facility] Emergency Room where she was diagnosed with a nondisplaced intertrochanteric left femoral fracture; however, family requests that she be transferred to [facility] for further orthopedic care. Currently, the patient states that she is feeling okay at rest, but a lot of pain if she moves her hip at all. As of late, she states that she has been in her normal state of health and denies experiencing any cardiac complaints of chest pain, shortness of breath, palpitations, lightheadedness, dizziness, or syncope. She is hindu about taking her medications and has not missed any dosages. PAST SURGICAL HISTORY: 1. Coronary artery bypass grafting surgery x4 with a BENTLEY to the LAD, vein graft to OM1, vein graft to OM3 and a vein graft to the PDA at [place] in 2013. 2. Postop course complicated by sternal wound and pulmonary embolism. 3. Medtronic dual chamber permanent pacemaker placement. 4. Appendectomy. 5. Vaginal sling. 6. Colonoscopy. 7. Upper endoscopy. 8. Spinal surgery. 9. Cataract surgery. 10. Total abdominal hysterectomy. MEDICAL ILLNESSES: 1. Coronary artery disease, status post CABG x4. 2. Pulmonary emboli postop. 3. Sternal wound postop. 4. History of third-degree heart block, status post Medtronic dual chamber permanent pacemaker placement. 5. Diastolic dysfunction with normal LV systolic function. 6. Type 2 diabetes with retinopathy, neuropathy and nephropathy. 7. Paroxysmal atrial fibrillation with a severe fall risk, not an anticoagulation candidate. 8. Asymptomatic carotid occlusive disease. 9. Osteoarthritis. 10. Osteoporosis. FAMILY HISTORY: Noncontributory. SOCIAL HISTORY: Denies any alcohol, tobacco or recreational drug use. She is . She currently lives at an assisted living facility in [place]. REVIEW OF SYSTEMS: As per HPI. All other review of systems reviewed and negative at this time. ALLERGIES: 1. SINEMET. 2. GABAPENTIN. 3. TRAMADOL. 4. CODEINE. 5. NEURONTIN. 6. NSAIDS. 7. ULTRAM. MEDICATIONS AN OUTPATIENT: 1. Atorvastatin 40 mg daily. 2. Losartan 25 mg daily. 3. Toprol-XL 50 mg daily. 4. Aspirin 81 mg daily. 5. Glucophage. 6. Effexor. 7. Singulair. 8. Ditropan. 9. Insulin as directed. 10. Iron. 11. Omeprazole daily. PHYSICAL EXAMINATION: VITALS: Temperature 37.4, pulse 74, respiratory rate 12, blood pressure 120/62. GENERAL: Awake, alert, oriented x3, mild distress secondary to hip pain, very frail in appearance. HEENT: Normocephalic, atraumatic. Pupils equal, round, reactive to light and accommodation. Extraocular muscles intact. Anicteric sclerae. Moist mucous membranes. NECK: No JVD, no bruit. CARDIOVASCULAR: Regular. Positive S4. Normal S1 and S2. No S3. No murmurs or rubs. PULMONARY: Clear to auscultation bilaterally. No rales, rhonchi, or wheezing. ABDOMEN: Bowel sounds x4, soft. No rebound, guarding, tenderness. No organomegaly. EXTREMITIES: No clubbing, cyanosis or edema. +2 pedal pulses bilaterally. SKIN: Warm and dry. TEST RESULTS: A 12-lead EKG performed in the Emergency Department independently reviewed at this time shows normal sinus rhythm at 76 beats per minute, normal axis, normal intervals, poor R-wave progression across the precordium. No significant change compared to previous study of 08/17/2017. IMPRESSION: 1. Left hip fracture, status post fall. 2. Longstanding balance disorder. 3. Coronary artery disease, status post CABG x4, stable. 4. Paroxysmal atrial fibrillation, not a Coumadin candidate given fall risk, currently normal sinus rhythm. 5. Osteoporosis. 6. Diastolic dysfunction with normal left ventricular systolic function. RECOMMENDATIONS: It was my pleasure to see Mrs. Scherer in consultation today. Discussed both with the patient and her daughter/power of senior trial attorney, Andra Paiges by phone that in terms of her preop risk assessment, I would place the patient as a moderate risk for any adverse perioperative cardiovascular event with the risk being approximately 5% and was further counseled that no further cardiac testing or intervention would further lower that risk. Both the patient and her daughter state that they understand, they are accepting of that risk and wish to proceed with surgical correction. So, no further cardiac testing or intervention is necessary from a cardiac standpoint. There was no benefit from delaying the surgery from a cardiac standpoint. The patient should be continued on her outpatient medical regimen, especially her beta nena which no doses should be missed whatsoever not only for its cardioprotective effects perioperatively, but also for AFib suppression.
[2018-08-31] MEDS ORDERED: LIDOCAINE HCL 2% 2 ML VIAL/AMP(20MG/ML) INFIL ONE (16:11)
[2018-08-31] MEDS ORDERED: PROPOFOL IV EMULSION 10 MG/ML 20 ML VIAL IV ONE (16:11)
[2018-08-31] MEDS ORDERED: fentaNYL citrate 100 MCG/2 ML VIAL ONE ×2 (16:11→18:12)
--- NOTE | 2018-08-31 16:37 | History & Physical Bridge Note ---
Date of Service August 31, 2018 History & Physical Bridge Note I have examined the patient, reviewed the History & Physical and in the interval since the performance of the History & Physical I have noted the following changes of clinical significance: no changes noted
[2018-08-31] MEDS ORDERED: CEFAZOLIN 2000MG 2,000 MG/15 ML SYR IV ONE (16:43)
[2018-08-31] MEDS ORDERED: CEFAZOLIN 2,000 MG/15 ML IV PUSH IV ONE (16:46)
[2018-08-31] MEDS ORDERED: ONDANSETRON INJ 2 MG/ML 2 ML VIAL IV PRN ×2 (16:53→19:33)
[2018-08-31] MEDS ORDERED: ATROPINE SULFATE 0.1 MG/ML 10ML SYR IV PRN (16:53)
[2018-08-31] MEDS ORDERED: PHENYLEPHRINE 100MCG/ML 5ML SYR IV PRN (16:53)
[2018-08-31] MEDS ORDERED: ePHEDrine sulfate 50 MG/ML AMP IV PRN (16:53)
[2018-08-31] MEDS ORDERED: fentaNYL citrate 100 MCG/2 ML VIAL IV PRN (16:53)
[2018-08-31] MEDS ORDERED: HYDROmorphone INJ 1 MG/ML SYRINGE IV PRN (16:53)
[2018-08-31] MEDS ORDERED: ETOMIDATE 2 MG/ML 20 ML VIAL IV ONE (17:23)
[2018-08-31] MEDS ORDERED: ONDANSETRON INJ 2 MG/ML 2 ML VIAL ONE (17:23)
[2018-08-31] MEDS ORDERED: ROCURONIUM BROMIDE 10 MG/ML 5 ML VIAL ONE (17:24)
[2018-08-31] MEDS ORDERED: GLYCOPYRROLATE 0.2 MG/ML VIAL ONE ×2 (17:24→18:00)
[2018-08-31] MEDS ORDERED: NEOSTIGMINE METHYLSULFATE 5 MG/5 ML SYR ONE (17:24)
[2018-08-31] MEDS ORDERED: PHENYLEPHRINE 100MCG/ML 5ML SYR ONE (17:51)
--- NOTE | 2018-08-31 18:14 | Fluoroscopy Report ---
FL hip LT 2-3V CLINICAL HISTORY: Left hip fracture. Internal fixation. COMPARISON STUDY: 08/30/2018 FLUOROSCOPY TIME: 42 seconds. NUMBER OF FLUOROSCOPIC IMAGES: 2 FINDINGS: 2 fluoroscopic spot images reveal internal fixation of an intratrochanteric left hip fractu re with a trochanteric nail and interlocking intramedullary mayte. IMPRESSION: Internally fixated intertrochanteric left hip fracture. Electronically signed by: Javi Edge M.D. 08/31/2018 6:13 PM
--- NOTE | 2018-08-31 18:24 | Post Operative Brief Note ---
Immediate Post Op Note v1 Date of Surgery August 31, 2018 Pre & Post Diagnosis Operation Date: 08/31/18 07:00 Pre-Op Diagnosis: Intertrochanteric fracture of left hip Post-Op Diagnosis: Intertrochanteric fracture of left hip Procedure Operation Date: 08/31/18 07:00 Actual Procedures p Left Hip Troch Nail(Left) - Sam Nunez DO Surgeon Sam Nunez DO Mechanical Facilities Technician alfred Estimated Blood Loss 250 Findings Consistent with Post-Op Diagnosis Drains Osman Catheter (osman in place from inpatient floor prior to admission to OR room)
--- NOTE | 2018-08-31 19:04 | Anesthesiology Progress Note ---
Date of Service August 31, 2018 Anesthesia Post Procedure Vital Signs Vital Signs: Temp Pulse Pulse Pulse Resp BP Pulse Ox 08/31/18 18:50 73 19 128/79 100 08/31/18 18:40 74 19 107/83 100 08/31/18 18:34 37.4 C 90 17 128/79 100 08/31/18 16:31 37.3 C 75 14 166/54 H 92 08/31/18 15:11 37 C 78 16 147/75 H 91 08/31/18 11:59 37.1 C 72 26 H 148/67 H 93 08/31/18 08:45 74 120/62 08/31/18 07:46 37.4 C 72 24 120/58 L 94 08/30/18 22:39 36.5 C 75 16 132/69 97 08/30/18 21:29 145/66 H Pain Intensity Left Hip: Pain Intensity: 0 Notes Mental Status: alert / awake / arousable Patient Amnestic to Procedure: Yes Nausea / Vomiting: adequately controlled Pain: adequately controlled Airway Patency, RR, SpO2: stable & adequate BP & HR: stable & adequate Hydration State: stable & adequate Anesthetic Complications: no major complications apparent Notes: Awake, doing well, VSS.
[2018-08-31] MEDS ORDERED: HYDROmorphone INJ 0.5 MG/0.5 ML SYR IV PRN (19:33)
[2018-08-31] MEDS ORDERED: NYSTATIN CR 15 GM TUBE EXT PRN (19:33)
[2018-08-31] MEDS ORDERED: MAGNESIUM HYDROXIDE SUSP 30 ML UDC PO PRN (19:33)
[2018-08-31] MEDS ORDERED: IBUPROFEN 600 MG TAB PO PRN (19:33)
[2018-08-31] MEDS ORDERED: BISACODYL 10 MG SUPP PR PRN ×2 (19:33)
[2018-08-31] MEDS ORDERED: SODIUM CHLORIDE 0.9% 1000ML 1,000 ML IV SCH (19:33)
[2018-08-31] MEDS ORDERED: OXYCODONE HCL IR 5 MG TAB (IMMEDIATE RELEASE) PO PRN (19:33)
[2018-08-31] MEDS: SODIUM CHLORIDE 0.9% 1000ML 1,000 ML IV SCH (19:48)
[2018-08-31] MEDS ORDERED: WHITE PETROLATUM MINERAL OIL OPR SCH (21:00)
[2018-08-31] MEDS ORDERED: LANTUS PER UNIT CHARGE SQ SCH (21:00)
[2018-08-31] MEDS: SENNA 8.6 MG TAB PO SCH (21:00)
[2018-08-31] MEDS: ACETAMINOPHEN 1,000 MG/100 ML VIAL IV SCH (22:02)
[2018-08-31] MEDS: NYSTATIN/TRIAMCIN CR 15 GM TUBE EXT SCH (22:03)
[2018-08-31] MEDS: MENTHOL-ZINC OXIDE 360 APPLN/120 GM TUBE EXT SCH (22:03)
[2018-08-31] MEDS: NYSTATIN POWDER 15GM BTL EXT SCH (22:03)
[2018-08-31] MEDS: NYSTATIN CR 15 GM TUBE EXT SCH (22:04)
[2018-08-31] MEDS ORDERED: DEXTROSE 50% 50 ML SYRINGE IV PRN (22:50)
[2018-08-31] MEDS ORDERED: CARBOHYDRATES FOR HYPOGLYCEMIA PO PRN (22:50)
[2018-08-31] MEDS ORDERED: GLUCOSE 10 TABS/TUBE PO PRN (22:50)
[2018-08-31] MEDS ORDERED: GLUCOSE 40% GEL 15 GM TUBE PO PRN (22:50)
[2018-08-31] MEDS ORDERED: GLUCAGON FOR INJ 1 MG VIAL SQ PRN (22:50)
[2018-09-01] MEDS ORDERED: CEFAZOLIN 2000MG 2,000 MG/15 ML SYR IV SCH
[2018-09-01] MEDS ORDERED: SODIUM CHLORIDE 0.9% 500 ML IV ONE ×2 (03:45→06:37)
[2018-09-01] MEDS ORDERED: DEXTROSE 50% 50 ML SYRINGE IV ONE (04:02)
[2018-09-01] MEDS ORDERED: HYDROmorphone INJ 0.5 MG/0.5 ML SYR IV PRN (04:06)
[2018-09-01] MEDS ORDERED: HYDROCODONE/ACETAMOPHEN 5/325MG TAB PO PRN (04:07)
[2018-09-01 04:20] LABS: Basophils # (auto) 0.03 K/uL (0-0.2); Basophils % (auto) 0.3 %; Eosinophils # (auto) 0.04 K/uL (0-0.5); Eosinophils % (auto) 0.4 %; Hemoglobin 7.7 g/dL (12.0-16.0); Immature Granulocytes # (auto) 0.02 K/uL (0.00-0.02); Immature Granulocytes % (auto) 0.2 %; Lymphocytes # (auto) 1.18 K/uL (1.2-3.4); Lymphocytes % (auto) 10.7 %; Mean Corpuscular Hgb Conc 33.5 g/dL (32-36); Mean Corpuscular Volume 91.3 fL (80-100); Mean Platelet Volume 10.1 fL (7.4-10.4); Monocytes # (auto) 1.28 K/uL (0.11-0.59); Monocytes % (auto) 11.7 %; Neutrophils # (auto) 8.43 K/uL (1.4-6.5); Neutrophils % (auto) 76.7 %; Platelet Count 118 K/uL (130-400); RDW Coefficient of Variation 13.5 % (11.5-14.5); RDW Standard Deviation 44.6 fL (36.4-46.3); Red Blood Count 2.52 M/uL (4.2-5.4); White Blood Count 10.98 K/uL (4.8-10.8)
[2018-09-01 04:37] LABS: BUN Creatinine Ratio 17.6 (10-20); Calcium 7.5 mg/dl (8.5-10.1); Creatinine Clr Calc Pharmacy 27.2 ml/min; Est GFR (African American) 43.8; Est GFR (Non-African American) 37.8; Magnesium 1.1 mg/dl (1.8-2.4); Potassium 4.2 mmol/L (3.5-5.1)
[2018-09-01] MEDS ORDERED: SODIUM CHLORIDE 0.9% 250 ML IV PRN ×4 (04:40→17:53)
[2018-09-01 04:44] LABS: RBC Morphology Unremarkable
[2018-09-01] MEDS: MAGNESIUM SULFATE / D5W 1 GM/100 ML BAG IV SCH ×4 (04:51→08:02)
[2018-09-01] MEDS ORDERED: SODIUM CHLORIDE 0.9% 1000ML 1,000 ML IV ONE (05:15)
[2018-09-01] MEDS ORDERED: SODIUM CHLORIDE 0.9% 1000ML 500 ML IV ONE (06:31)
[2018-09-01 06:37] LABS: Appearance Urine Cloudy (Clear); Bacteria Urine Automated Negative (Negative); Bilirubin Urine Negative (Negative); Blood Urine Trace (Negative); Color Urine Yellow; Glucose Urine UA 2+ (Negative); Ketones Urine Trace (Negative); Leukocyte Esterase Urine 2+ (Negative); Nitrite Urine Negative (Negative); Protein Urine Trace (Negative); Specific Gravity Urine 1.025 (1.000-1.030); Urobilinogen Urine Negative (Negative); WBC Urine Automated >30 /hpf (0-5)
[2018-09-01] MEDS ORDERED: PIPERACILL/TAZOBAC CONSULT ACTIVE PRN (06:59)
[2018-09-01] MEDS ORDERED: PIPERACILLIN/TAZOBACTAM 4.5 GM/120 ML BAG IV ONE (06:59)
--- NOTE | 2018-09-01 06:59 | Hospitalist Progress Note ---
Date of Service September 01, 2018 Subjective Patient noted to be intermittently hypotensive in a.m. BP improved with fluid bolus. During blood transfusion, patient noted to be hypotensive. Drowsy as per RN. Patient later noted to have fever spike. UA WBC est Patient denies chest pain, S OB, abdominal pain, dysuria. AP postop Encephalopathy secondary to possible sepsis secondary to complicated UTI (hx Enterococcus on previous outpatient urine cultures) Cultures, check lactic acid IV Zosyn for now Will relay to AM provider. Physical Exam Vital Signs (Past 24 Hours): Last Vital Signs Temp 38.0 C H 09/01/18 06:35 Pulse 78 09/01/18 06:35 Resp 18 09/01/18 06:35 BP 90/52 L 09/01/18 06:35 Pulse Ox 95 09/01/18 06:35
[2018-09-01 07:11] LABS: RBC Urine Automated 0-4 /hpf (0-4)
[2018-09-01] MEDS ORDERED: ACETAMINOPHEN 65 ML IV ONE (07:15)
[2018-09-01] MEDS ORDERED: PIPERACILLIN/TAZOBACTAM 3.375 GM in DEXTROSE 5% 100 ML IV ONE (07:30)
[2018-09-01] MEDS: ACETAMINOPHEN 1,000 MG/100 ML VIAL IV SCH ×2 (07:33→13:02)
[2018-09-01] MEDS ORDERED: ASPIRIN/ALUM/MAGNES/CAL CARB 325 MG TAB PO SCH (08:00)
[2018-09-01] MEDS ORDERED: METFORMIN HCL 500 MG TAB PO SCH (08:00)
--- NOTE | 2018-09-01 08:00 | XRay Report ---
SINGLE VIEW CHEST CLINICAL HISTORY: Hypoxia. FINDINGS: An AP, portable, upright chest radiograph is compared to study dated 08/30/2018. The examina tion is significantly degraded by portable technique and patient rotation. Midline sternotomy wires a re noted. A 2-lead cardiac pacemaker is unchanged in position and partially secures left lung base. T he heart is enlarged. There is mild pulmonary vascular congestion. There are low lung volumes with bi basilar atelectasis. No large pleural effusion or Pneumothorax is seen. The skeletal structures are o steopenic. Chronic posttraumatic deformity is noted in the right humeral head. Degenerative change is seen in the shoulders and thoracic spine. IMPRESSION: 1. Cardiomegaly with mild pulmonary vascular congestion. This is new from 08/30/2018. 2. Low lung volumes and bibasilar atelectasis. 3. No airspace consolidation or large pleural effusion is identified. Electronically signed by: Zeeshan Bob M.D. 09/01/2018 7:59 AM
[2018-09-01 08:09] LABS: HCO3 ABG 24 mmol/L (19-24); PCO2 ABG 40 mmHg (35-46); PO2 ABG 108 mm/Hg (80-95)
[2018-09-01 08:14] LABS: Allen Test Pos (Pos)
[2018-09-01] MEDS: CHOLECALCIFEROL 1,000 UNITS TAB PO SCH (08:43)
[2018-09-01] MEDS ORDERED: CONSULT PHARMACY SCH (09:00)
[2018-09-01] MEDS ORDERED: LOSARTAN POTASSIUM 25 MG TAB PO SCH (09:00)
[2018-09-01] MEDS: INSULIN ASPART 100 UNITS/ML 3 ML PEN SC SCH ×4 (09:49→23:01)
[2018-09-01] MEDS: MENTHOL-ZINC OXIDE 360 APPLN/120 GM TUBE EXT SCH ×2 (10:39→13:12)
[2018-09-01] MEDS: NYSTATIN/TRIAMCIN CR 15 GM TUBE EXT SCH (10:39)
[2018-09-01] MEDS: NYSTATIN POWDER 15GM BTL EXT SCH ×2 (10:40→13:12)
[2018-09-01] MEDS: NYSTATIN CR 15 GM TUBE EXT SCH (10:40)
--- NOTE | 2018-09-01 10:41 | Progress Note ---
DATE: 09/01/2018 SUBJECTIVE: The patient is somewhat somnolent on today's date. She had difficult night with fallen blood pressure. She is arousable. Today her blood pressure is 101/63, pulse 80 regular. Pain is controlled. Wound protected. ASSESSMENT: Status post open reduction and internal fixation of the left hip with hypertension, reflux, diabetes and cardiac arrhythmia. PLAN: Right now Medical Service is taking excellent care of her, which we are thankful for. We will hold off on her therapy. Maybe get her up on her feet tomorrow if she starts to stabilize.
[2018-09-01 11:32] LABS: Hemoglobin 7.3 g/dL (12.0-16.0)
[2018-09-01] MEDS ORDERED: ALBUT/IPRATROP 3MG/0.5MG NEB 3 ML VIAL NEB PRN (12:32)
[2018-09-01] MEDS: PIPERACILLIN/TAZOBACTAM 3.375 GM in DEXTROSE 5% 100 ML IV SCH ×2 (13:57→23:03)
--- NOTE | 2018-09-01 17:57 | Hospitalist Progress Note ---
Date of Service August 31, 2018 ( Late Entry) Time: 14:25 Assessment & Plan (1) Hip fracture, left: Secondary to mechanical fall Left Xray hip xray showed non displaced intertrochanteric left hip fracture. Pain control Case discussed with Ortho, plan to take to OR tomorrow denies any chest pain and SOB has a Functional capacity with a METS 4 before the injury Major risks discussed with patient such as bleeding, infection and Stable from cardiac standpoint as per recent outpatient [facility] Cardiology visit last March 2018 Cardiology on board OK to proceed with procedure as per cardiology Hx Chronic diastolic heart failure Asymptomatic No sign of heart failure EF 55-60%, TTE 2013) Stable CAD status post CABG/PVD Continue Statin and metoprolol Will hold aspirin today Denies any chest pain Complete heart block status post PPM Hx PAF currently NSR not on anticoagulation secondary to recurrent multiple falls Rate controlled with metoprolol DM 2 Hemoglobin A1c of 6.8 last December 2017 Will check Hba1c Monitor BS Chronic anemia hemoglobin at baseline DVT px on SCDS CODE STATUS FULL CODE Subjective Pt was seen and examined Lying in bed with no distress Waiting to go to OR Physical Exam Vital Signs (Past 24 Hours): Last Vital Signs Temp 37.4 C 09/01/18 16:16 Pulse 68 09/01/18 16:16 Resp 23 09/01/18 16:16 BP 95/37 L 09/01/18 16:16 Pulse Ox 98 09/01/18 16:16 Physical Exam: General- No acute distress Head- atraumatic Eyes- PERRL, EOMI, ENT- oropharynx clear Neck- supple, no JVD Lungs-No wheezing Heart- regular rhythm Abdomen- normal bowel sounds, soft Extremities- no calf tenderness, Left hip pain Neuro- alert, oriented x 3; PERRL, EOMI; no facial palsy Skin- warm & dry
--- NOTE | 2018-09-01 19:49 | Hospitalist Progress Note ---
Date of Service September 01, 2018 Assessment & Plan (1) Hypotension: Due to hypovolemia BP dropped in the 70s IVF held due to development on pulmonary edema seeing on CXR Will transfer to tele for close monitor No need for pressor now since pt is transfusion Will transfuse 2 units PRBC Monitor BP closely (2) Acute blood loss anemia: (3) Anemia: Symptomatic Due to post op blood loss Hbg 7.3 Will transfused 2 units PRBC Monitor H/H Will give lasix after tranfusion in BP improves (4) Hip fracture, left: Secondary to mechanical fall Left Xray hip xray showed non displaced intertrochanteric left hip fracture. Pain control Case discussed with Ortho, plan to take to OR tomorrow denies any chest pain and SOB has a Functional capacity with a METS 4 before the injury Major risks discussed with patient such as bleeding, infection and Stable from cardiac standpoint as per recent outpatient [facility] visit last March 2018 Cardiology on board OK to proceed with procedure as per cardiology 09/01 S/p day 1 Left Hip Troch Nail(Left) - Sam Nunez, DO Hgb dropped to 7.3 PT/OT Pain control Incentive spirometry Fever Possible related to blood transfusion vs infection Starting on IV Zosyn Urine cx and blood cx pending Monitor CBC Check procalcitonin Respiratory distress Hx Chronic diastolic heart failure CXR showed Cardiomegaly with mild pulmonary vascular congestion. EF 55-60%, TTE 2013) Unable to give lasix due to low BP Once BP improves after blood transfusion, will give lasix Continue oxygen supplement CAD status post CABG/PVD Continue Statin and metoprolol Will hold aspirin today Denies any chest pain Complete heart block status post PPM Hx PAF currently NSR not on anticoagulation secondary to recurrent multiple falls Rate controlled with metoprolol DM 2 Hemoglobin A1c of 6.8 last December 2017 Will check Hba1c Monitor BS DVT px on SCDS CODE STATUS FULL CODE Subjective Pt was seen and examined Lying in bed with respiratory distress She is very drowsy and on oxygen supplement Her BP dropped 30minutes and febrile when the transfusion started Transfusion had to stop She said that she does not have any pain Physical Exam Vital Signs (Past 24 Hours): Last Vital Signs Temp 37.3 C 09/01/18 18:42 Pulse 68 09/01/18 18:42 Resp 14 09/01/18 18:42 BP 113/78 09/01/18 18:42 Pulse Ox 96 03/16/19 18:42 Physical Exam: General- No acute distress Head- Lethargy Eyes- PERRL, EOMI, ENT- oropharynx clear Neck- supple, no JVD Lungs-Decrease BS Heart- regular rhythm Abdomen- normal bowel sounds, soft Extremities- no calf tenderness, Left hip pain Neuro- drowsy Skin- warm & dry
[2018-09-01] MEDS ORDERED: INSULIN GLARGINE SOLOSTAR 100 UNITS/ML 3 ML PEN SQ SCH (21:00)
[2018-09-01] MEDS: SENNA 8.6 MG TAB PO SCH (23:04)
[2018-09-02 00:18] LABS: Hematocrit (blood only) 30.7 % (37-47); Hemoglobin 10.4 g/dL (12.0-16.0)
[2018-09-02] MEDS: MENTHOL-ZINC OXIDE 360 APPLN/120 GM TUBE EXT SCH ×4 (00:44→21:27)
[2018-09-02] MEDS: NYSTATIN CR 15 GM TUBE EXT SCH ×3 (00:45→21:32)
[2018-09-02] MEDS: NYSTATIN/TRIAMCIN CR 15 GM TUBE EXT SCH ×3 (00:45→21:33)
[2018-09-02] MEDS: NYSTATIN POWDER 15GM BTL EXT SCH ×4 (00:45→21:33)
[2018-09-02] MEDS: PIPERACILLIN/TAZOBACTAM 3.375 GM in DEXTROSE 5% 100 ML IV SCH ×3 (05:07→21:49)
--- NOTE | 2018-09-02 07:07 | Progress Note ---
DATE: 09/02/2018 SUBJECTIVE: She is alert, arousable this morning. Pain is controlled. She is still lying on her right hand side, has not been out of bed. OBJECTIVE: Vital signs remained stable. ASSESSMENT: Status post open reduction internal fixation of left hip done on the evening of August 31. PLAN: She can hopefully progress out of bed to chair today. She should be protected weightbearing on the left side, approximately 50% would be appropriate. She will need extended care rehab.
[2018-09-02 07:13] LABS: Hematocrit (blood only) 27.7 % (37-47); Hemoglobin 9.5 g/dL (12.0-16.0); Mean Corpuscular Hgb Conc 34.3 g/dL (32-36); Mean Corpuscular Volume 90.2 fL (80-100); Mean Platelet Volume 10.2 fL (7.4-10.4); Platelet Count 104 K/uL (130-400); Red Blood Count 3.07 M/uL (4.2-5.4)
[2018-09-02 07:37] LABS: BUN Creatinine Ratio 19.9 (10-20); Creatinine Clr Calc Pharmacy 30.4 ml/min; Est GFR (African American) 49.4; Est GFR (Non-African American) 42.6
[2018-09-02] MEDS: INSULIN GLARGINE SOLOSTAR 100 UNITS/ML 3 ML PEN SC SCH ×2 (08:38→21:29)
[2018-09-02] MEDS: CHOLECALCIFEROL 1,000 UNITS TAB PO SCH (08:42)
[2018-09-02] MEDS: INSULIN ASPART 100 UNITS/ML 3 ML PEN SC SCH ×4 (10:38→21:31)
[2018-09-02] MEDS ORDERED: FUROSEMIDE 20 MG in SYRINGE 0 ML IV ONE ×2 (11:27→21:15)
[2018-09-02] MEDS ORDERED: FUROSEMIDE 10 MG in SYRINGE 0 ML IV ONE (12:00)
--- NOTE | 2018-09-02 14:55 | Hospitalist Progress Note ---
Date of Service September 02, 2018 Assessment & Plan (1) Hypotension: Due to hypovolemia IVF held due to development on pulmonary edema seeing on CXR Will transfer to tele for close monitor No need for pressor now since pt is transfusion Will transfuse 2 units PRBC Monitor BP closely 09/02 BP dropped in the 70s systolic yesterday Received 2 units PRBC BP stable today (2) Acute blood loss anemia: (3) Anemia: Symptomatic Due to post op blood loss Hbg improved from 7.3 to 9.7 this morning Received 2 units PRBC yesterday Monitor H/H Will resume aspirin in am if Hgb stable (4) Hip fracture, left: Secondary to mechanical fall Left Xray hip xray showed non displaced intertrochanteric left hip fracture. Pain control Case discussed with Ortho, plan to take to OR tomorrow denies any chest pain and SOB has a Functional capacity with a METS 4 before the injury Major risks discussed with patient such as bleeding, infection and Stable from cardiac standpoint as per recent outpatient [facility] visit last March 2018 Cardiology on board OK to proceed with procedure as per cardiology 09/02 S/p day 2 Left Hip Troch Nail(Left) - Sam Nunez, DO Hgb improved to 9.7 today Will start PT/OT Pain control Incentive spirometry Will need inpatient rehab UTI Fever Urine cx positive for gram positive cocci/ Alpha strep not enterococcus Continue IV Zosyn for now Blood cx pending Procalcitonin Afebrile today Continue monitor Respiratory distress Hx Chronic diastolic heart failure CXR showed Cardiomegaly with mild pulmonary vascular congestion. EF 55-60%, TTE 2013) Continue oxygen supplement Low dose lasix given today Clinically improves CAD status post CABG/PVD Continue Statin and metoprolol Will hold aspirin today until h/h stable Denies any chest pain Complete heart block status post PPM Hx PAF currently NSR not on anticoagulation secondary to recurrent multiple falls Rate controlled with metoprolol DM 2 Hemoglobin A1c of 6.8 last December 2017 Hba1c 7.3 Monitor BS DVT px on SCDS CODE STATUS FULL CODE Disposition Will transfer back [facility] [place] Subjective Pt was seen and examined Lying in bed with no distress Pt feels much better today compared to yesterday She said that her breathing feels much better She denies any pain, palpitation and SOB Physical Exam Vital Signs (Past 24 Hours): Last Vital Signs Temp 36.9 C 09/02/18 12:00 Pulse 83 09/02/18 14:01 Resp 20 09/02/18 14:01 BP 123/59 L 09/02/18 14:00 Pulse Ox 98 09/02/18 14:01 Physical Exam: General- No acute distress Head- Lethargy Eyes- PERRL, EOMI, ENT- oropharynx clear Neck- supple, no JVD Lungs-Decrease BS Heart- regular rhythm Abdomen- normal bowel sounds, soft Extremities- no calf tenderness, Left hip pain Neuro- drowsy Skin- warm & dry
[2018-09-02] MEDS: ACETAMINOPHEN 325 MG TAB PO PRN (21:26)
[2018-09-02] MEDS: SENNA 8.6 MG TAB PO SCH (21:34)
[2018-09-03] MEDS: PIPERACILLIN/TAZOBACTAM 3.375 GM in DEXTROSE 5% 100 ML IV SCH ×3 (06:27→21:12)
[2018-09-03 07:04] LABS: Hematocrit (blood only) 29.1 % (37-47); Hemoglobin 9.7 g/dL (12.0-16.0); Mean Corpuscular Hgb Conc 33.3 g/dL (32-36); Mean Corpuscular Volume 90.1 fL (80-100); Mean Platelet Volume 10.7 fL (7.4-10.4); Platelet Count 129 K/uL (130-400); RDW Coefficient of Variation 13.8 % (11.5-14.5); Red Blood Count 3.23 M/uL (4.2-5.4); White Blood Count 8.64 K/uL (4.8-10.8)
[2018-09-03 07:32] LABS: BUN Creatinine Ratio 19.2 (10-20); Calcium 8.3 mg/dl (8.5-10.1); Creatinine Clr Calc Pharmacy 25.7 ml/min; Est GFR (African American) 40.4; Est GFR (Non-African American) 34.8; Potassium 3.9 mmol/L (3.5-5.1)
--- NOTE | 2018-09-03 07:39 | Operative Report ---
DATE OF OPERATION: 08/31/2018 PREOPERATIVE DIAGNOSIS: Intertrochanteric fracture, left hip. POSTOPERATIVE DIAGNOSIS: Intertrochanteric fracture, left hip. PROCEDURE: Included a short IM rodding of the left hip. SURGEON: Sam Nunez DO ESTIMATED BLOOD LOSS: 250 mL. COMPLICATIONS: Zero. EMERGENCY PHYSICIAN: Jamaal Salinas PA-C DESCRIPTION OF PROCEDURE: The patient was taken to the Operating Room. A general intubated anesthetic provided to the patient. Provisional traction placed to her foot and ankle. Scrubbed, prepped and draped sterile. I made a skin incision, entered the tip of the greater trochanter and advanced the guidewire and drilled reamed over this, placed the 11 mm short nail over the guidewire, locked proximally and distally. The screw that went the helical blade was 95 mm in length. The fixation and structures were anatomic. We irrigated and closed in layers with #1 Vicryl, 2-0 and staple gun. Sterile dressing applied. The patient was extubated to PACU stable. No apparent complications. I attest to the content of the Intraoperative Record and any orders documented therein. Any exception s are noted below.
[2018-09-03] MEDS: NYSTATIN POWDER 15GM BTL EXT SCH ×3 (09:09→20:32)
[2018-09-03] MEDS: MENTHOL-ZINC OXIDE 360 APPLN/120 GM TUBE EXT SCH ×3 (09:10→20:31)
[2018-09-03] MEDS: NYSTATIN CR 15 GM TUBE EXT SCH ×2 (09:10→20:33)
[2018-09-03] MEDS: CHOLECALCIFEROL 1,000 UNITS TAB PO SCH (09:11)
[2018-09-03] MEDS: NYSTATIN/TRIAMCIN CR 15 GM TUBE EXT SCH ×2 (09:11→20:32)
[2018-09-03] MEDS: METOPROLOL SUCC 50MG EXT REL TAB PO SCH (09:12)
[2018-09-03] MEDS: INSULIN GLARGINE SOLOSTAR 100 UNITS/ML 3 ML PEN SC SCH ×2 (09:54→21:07)
[2018-09-03] MEDS: INSULIN ASPART 100 UNITS/ML 3 ML PEN SC SCH ×4 (09:55→21:08)
[2018-09-03] MEDS: SENNA 8.6 MG TAB PO SCH (20:34)
--- NOTE | 2018-09-03 21:01 | Hospitalist Progress Note ---
Date of Service September 03, 2018 Assessment & Plan (1) Hypotension: Due to hypovolemia IVF held due to development on pulmonary edema seeing on CXR Will transfer to tele for close monitor No need for pressor now since pt is transfusion Received 2 units PRBC Blood pressure stable Resolved (2) Acute blood loss anemia: (3) Anemia: Symptomatic Due to post op blood loss Hbg improved from 7.3 to 9.7 this morning Received 2 units PRBC during hospital course Hbg 9.7 today stable (4) Hip fracture, left: Secondary to mechanical fall Left Xray hip xray showed non displaced intertrochanteric left hip fracture. Pain control Case discussed with Ortho, plan to take to OR tomorrow denies any chest pain and SOB has a Functional capacity with a METS 4 before the injury Major risks discussed with patient such as bleeding, infection and Stable from cardiac standpoint as per recent outpatient [facility] visit last March 2018 Cardiology on board OK to proceed with procedure as per cardiology 09/03 S/p day 3 Left Hip Troch Nail(Left) - Sam Nunez, DO Hgb improved to 9.7 today PT/OT eval Pain control Incentive spirometry Will need inpatient rehab UTI Fever Urine cx positive for gram positive cocci/ Alpha strep not enterococcus Continue IV Zosyn for now Blood cx pending Procalcitonin Afebrile today Continue monitor Respiratory distress Hx Chronic diastolic heart failure CXR showed Cardiomegaly with mild pulmonary vascular congestion. EF 55-60%, TTE 2013) Continue oxygen supplement Low dose lasix given today Clinically improves CAD status post CABG/PVD Continue Statin and metoprolol Will hold aspirin today until h/h stable Denies any chest pain Complete heart block status post PPM Hx PAF currently NSR not on anticoagulation secondary to recurrent multiple falls Rate controlled with metoprolol DM 2 Hemoglobin A1c of 6.8 last December 2017 Hba1c 7.3 Monitor BS DVT px on SCDS will resume Aspirin as per ortho CODE STATUS FULL CODE Disposition will discharge to rehab Subjective Pt was seen and examined Lying in bed with no distress She is feeling much better She is breathing on RA Denies any chest pain, palpitation, dizziness and SOB Physical Exam Vital Signs (Past 24 Hours): Last Vital Signs Temp 36.4 C L 09/03/18 15:11 Pulse 82 09/03/18 15:11 Resp 18 09/03/18 15:11 BP 113/67 09/03/18 15:11 Pulse Ox 90 09/03/18 15:11 Physical Exam: General- No acute distress Head- Lethargy Eyes- PERRL, EOMI, ENT- oropharynx clear Neck- supple, no JVD Lungs-Decrease BS Heart- regular rhythm Abdomen- normal bowel sounds, soft Extremities- no calf tenderness, Left hip pain Neuro- drowsy Skin- warm & dry
[2018-09-04] MEDS: PIPERACILLIN/TAZOBACTAM 3.375 GM in DEXTROSE 5% 100 ML IV SCH ×3 (05:52→21:15)
[2018-09-04 07:13] LABS: Creatinine Clr Calc Pharmacy 28.4 ml/min; Est GFR (African American) 45.5; Est GFR (Non-African American) 39.3
[2018-09-04] MEDS: NYSTATIN POWDER 15GM BTL EXT SCH ×3 (09:12→20:04)
[2018-09-04] MEDS: NYSTATIN CR 15 GM TUBE EXT SCH ×2 (09:13→20:04)
[2018-09-04] MEDS: METOPROLOL SUCC 50MG EXT REL TAB PO SCH (09:13)
[2018-09-04] MEDS: NYSTATIN/TRIAMCIN CR 15 GM TUBE EXT SCH ×2 (09:13→20:04)
[2018-09-04] MEDS: CHOLECALCIFEROL 1,000 UNITS TAB PO SCH (09:13)
[2018-09-04] MEDS: MENTHOL-ZINC OXIDE 360 APPLN/120 GM TUBE EXT SCH ×3 (09:14→20:04)
[2018-09-04] MEDS: ASPIRIN 325 MG ECTAB PO SCH (09:14)
[2018-09-04] MEDS: INSULIN GLARGINE SOLOSTAR 100 UNITS/ML 3 ML PEN SC SCH ×2 (09:15→21:16)
[2018-09-04] MEDS: INSULIN ASPART 100 UNITS/ML 3 ML PEN SC SCH ×4 (09:16→21:16)
--- NOTE | 2018-09-04 10:58 | Progress Note ---
DATE: 09/04/2018 SUBJECTIVE: Janna was doing poorly on today's date as she was tough to arouse. OBJECTIVE: The wound was clean, dry. Vital signs stable. Hemoglobin satisfactory. IMPRESSION: Hip fracture, hypertension, blood loss anemia. PLAN: Includes continued supportive care, up with therapy if at all possible, she will need extensive postoperative rehabilitation.
[2018-09-04] MEDS: ACETAMINOPHEN 325 MG TAB PO PRN (14:26)
--- NOTE | 2018-09-04 14:39 | XRay Report ---
XR chest 1V portable CLINICAL HISTORY: f/u dyspnea COMPARISON STUDY: 09/01/2018 FINDINGS: Improving findings of congestive failure. Diminished prominence of pulmonary vasculature. Bipolar cardiac pacemaker remains in good position. Diaphragms are smooth. IMPRESSION: Improving congestive heart failure The above report was generated using voice recognition software. It may contain grammatical, syntax or spelling errors. Electronically signed by: Jayesh Ruiz M.D. 09/04/2018 2:38 PM
--- NOTE | 2018-09-04 19:37 | Hospitalist Progress Note ---
Date of Service September 04, 2018 Assessment & Plan (1) Hypotension: Due to hypovolemia IVF held due to development on pulmonary edema seeing on CXR Will transfer to tele for close monitor No need for pressor now since pt is transfusion Received 2 units PRBC Blood pressure stable Resolved (2) Acute blood loss anemia: (3) Anemia: Symptomatic Due to post op blood loss Hbg improved from 7.3 to 9.7 this morning Received 2 units PRBC during hospital course Hbg 9.7 stable (4) Hip fracture, left: Secondary to mechanical fall Left Xray hip xray showed non displaced intertrochanteric left hip fracture. Pain control Case discussed with Ortho, plan to take to OR tomorrow denies any chest pain and SOB has a Functional capacity with a METS 4 before the injury Major risks discussed with patient such as bleeding, infection and Stable from cardiac standpoint as per recent outpatient [facility] visit last March 2018 Cardiology on board OK to proceed with procedure as per cardiology 09/04 S/p day 4 Left Hip Troch Nail(Left) - Sam Nunez, DO Hgb improved to 9.7 PT/OT eval Pain control Incentive spirometry waiting for placement to inpatient rehab UTI Fever Urine cx positive for gram positive cocci/ Alpha strep not enterococcus Continue IV Zosyn for now Blood cx no growth Procalcitonin Will change abx to keflex in am Continue monitor Respiratory distress Hx Chronic diastolic heart failure Repeat CXR showed improving congestive heart failure EF 55-60%, TTE 2013) Continue oxygen supplement I/O still has a postive balance Low dose lasix 20mg po given today Clinically improves CAD status post CABG/PVD Continue Statin and metoprolol Aspirin resumed Denies any chest pain Complete heart block status post PPM Hx PAF currently NSR not on anticoagulation secondary to recurrent multiple falls Rate controlled with metoprolol DM 2 Hemoglobin A1c of 6.8 last December 2017 Hba1c 7.3 Monitor BS DVT px on SCDS On Aspirin 325 mg as per ortho CODE STATUS FULL CODE Disposition Will discharge to rehab once medically stable Subjective Pt was seen and examined Lying in bed with no distress Pt said that she only has pain with movement of the LLE Updates provided to daughter Denies any chest pain, palpitation and SOB Physical Exam Vital Signs (Past 24 Hours): Last Vital Signs Temp 36.7 C 09/04/18 15:09 Pulse 73 09/04/18 15:09 Resp 18 09/04/18 15:09 BP 130/63 09/04/18 15:09 Pulse Ox 97 09/04/18 17:50 Physical Exam: General- No acute distress Head- Lethargy Eyes- PERRL, EOMI, ENT- oropharynx clear Neck- supple, no JVD Lungs-diminished BS Heart- regular rhythm Abdomen- normal bowel sounds, soft Extremities- no calf tenderness, Left hip pain Neuro- drowsy Skin- warm & dry
[2018-09-04] MEDS: SENNA 8.6 MG TAB PO SCH (20:04)
[2018-09-05] MEDS: PIPERACILLIN/TAZOBACTAM 3.375 GM in DEXTROSE 5% 100 ML IV SCH ×2 (05:55→13:27)
[2018-09-05] MEDS: ACETAMINOPHEN 325 MG TAB PO PRN ×2 (06:01→19:37)
[2018-09-05 06:31] LABS: Hematocrit (blood only) 27.5 % (37-47); Mean Corpuscular Hgb Conc 32.7 g/dL (32-36); Mean Corpuscular Volume 91.1 fL (80-100); Mean Platelet Volume 10.2 fL (7.4-10.4); Platelet Count 133 K/uL (130-400); RDW Coefficient of Variation 13.7 % (11.5-14.5); RDW Standard Deviation 45.6 fL (36.4-46.3); Red Blood Count 3.02 M/uL (4.2-5.4); White Blood Count 6.19 K/uL (4.8-10.8)
[2018-09-05 07:12] LABS: BUN Creatinine Ratio 25.8 (10-20); Calcium 8.8 mg/dl (8.5-10.1); Creatinine Clr Calc Pharmacy 23.8 ml/min; Est GFR (African American) 36.8; Est GFR (Non-African American) 31.7
[2018-09-05] MEDS: MENTHOL-ZINC OXIDE 360 APPLN/120 GM TUBE EXT SCH ×3 (10:24→22:01)
[2018-09-05] MEDS: NYSTATIN/TRIAMCIN CR 15 GM TUBE EXT SCH ×2 (10:25→22:02)
[2018-09-05] MEDS: NYSTATIN CR 15 GM TUBE EXT SCH ×2 (10:25→22:01)
[2018-09-05] MEDS: CHOLECALCIFEROL 1,000 UNITS TAB PO SCH (10:25)
[2018-09-05] MEDS: NYSTATIN POWDER 15GM BTL EXT SCH ×3 (10:25→22:03)
[2018-09-05] MEDS: METOPROLOL SUCC 50MG EXT REL TAB PO SCH (10:26)
[2018-09-05] MEDS: ASPIRIN 325 MG ECTAB PO SCH (10:26)
[2018-09-05] MEDS: INSULIN ASPART 100 UNITS/ML 3 ML PEN SC SCH ×4 (10:28→22:04)
[2018-09-05] MEDS: INSULIN GLARGINE SOLOSTAR 100 UNITS/ML 3 ML PEN SC SCH ×3 (10:29→22:07)
[2018-09-05] MEDS ORDERED: HYDROmorphone INJ 0.5 MG/0.5 ML SYR IV STA (20:03)
--- NOTE | 2018-09-05 20:18 | Hospitalist Progress Note ---
Date of Service September 05, 2018 Assessment & Plan (1) Hip fracture, left: Intertrochanteric fracture of left hip secondary to mechanical fall. Repair performed by Dr. Nunez on 08/31/18. Postoperative course complicated by hypotension and acute blood loss anemia. Participating in PT and OT. (2) Acute blood loss anemia: Hemoglobin fell from 9.7 on admission to 7.3 postoperatively. Acute blood loss anemia secondary to hip fracture. Transfused with 3 units of packed RBCs. Hemoglobin today 9.0. (3) Hypotension: Postoperative hypotension, resolved after receiving IV fluids. (4) UTI (urinary tract infection): Urinalysis on 09/01 demonstrated leukocyte esterase, WBCs, epithelial cells, no bacteria. Urine culture grew greater than 100,000 colonies of alpha strep, not enterococcus as well as 50,000 colonies of Enterococcus faecalis. Receiving intravenous piperacillin/tazobactam. Transition to amoxicillin per sensitivities. (5) CHF (congestive heart failure): History of left ventricular diastolic heart failure. Postoperative CHF secondary to IV fluids and blood transfusions. Acute on chronic left ventricular diastolic heart failure. Follow-up chest x-ray on 09/04 showed improving CHF. Now oxygenating well on room air. (6) Coronary artery disease: Continue aspirin, metoprolol, statin. (7) Paroxysmal atrial fibrillation: Continue metoprolol. Not anticoagulated because of multiple falls. (8) Constipation: No bowel movements for several days. Bowel regimen as ordered. (9) DVT prophylaxis: SCDs and aspirin ordered. (10) Discharge planning issues: Anticipated need for skilled care. Case Management consulted. Family Medicine follow-up with Dr. Núñez. Subjective Recheck for hip fracture and other problems. Patient seen in her room around 1550. Feels tired today. Constipated. Participating in physical therapy. Review of Systems No fever. No chest pain. No cough or shortness of breath. No nausea or vomiting. No urinary symptoms. Physical Exam Vital Signs (Past 24 Hours): Last Vital Signs Temp 36.6 C 09/05/18 15:08 Pulse 80 09/05/18 15:08 Resp 18 09/05/18 15:08 BP 145/72 H 09/05/18 15:08 Pulse Ox 93 09/05/18 15:08 Constitutional: no acute distress Respiratory: no respiratory distress Auscultation: lungs clear to auscultation bilaterally Cardiovascular: Rate/Rhythm: regular rate and regular rhythm Vessels: no JVD Extremities: no calf tenderness and no edema Gastrointestinal (Abdomen): normal bowel sounds, soft, nontender, no hepatosplenomegaly Musculoskeletal: SCDs applied. Skin: no rashes, warm and dry Psychiatric: Orientation: alert and oriented x 3 Results & Data Laboratory Results Laboratory Results - last 24 hr 09/04/18 09/05/18 09/05/18 20:45 06:10 06:10 WBC 6.19 RBC 3.02 L Hgb 9.0 L Hct 27.5 L MCV 91.1 MCH 29.8 MCHC 32.7 RDW Std Deviation 45.6 RDW Coeff of Loreta 13.7 Plt Count 133 MPV 10.2 Sodium 139 Potassium 4.0 Chloride 103 Carbon Dioxide 32 Anion Gap 4.0 BUN 38 H Creatinine 1.48 H Est Cr Clr Drug Dosing 23.8 Est GFR ( Amer) 36.8 Est GFR (Non-Af Amer) 31.7 BUN/Creatinine Ratio 25.8 H Glucose 191 H POC Glucose 289 H Calcium 8.8 09/05/18 09/05/18 09/05/18 08:14 12:24 17:23 WBC RBC Hgb Hct MCV MCH MCHC RDW Std Deviation RDW Coeff of Loreta Plt Count MPV Sodium Potassium Chloride Carbon Dioxide Anion Gap BUN Creatinine Est Cr Clr Drug Dosing Est GFR ( Amer) Est GFR (Non-Af Amer) BUN/Creatinine Ratio Glucose POC Glucose 202 H 299 H 245 H Calcium
[2018-09-05] MEDS: SENNA 8.6 MG TAB PO SCH (21:58)
[2018-09-06] MEDS: ACETAMINOPHEN 325 MG TAB PO PRN ×2 (05:11→16:25)
[2018-09-06] MEDS ORDERED: AMOXICILLIN 250 MG CAP PO SCH (09:00)
[2018-09-06] MEDS: CHOLECALCIFEROL 1,000 UNITS TAB PO SCH (09:15)
[2018-09-06] MEDS: METOPROLOL SUCC 50MG EXT REL TAB PO SCH (09:15)
[2018-09-06] MEDS: ASPIRIN 325 MG ECTAB PO SCH (09:16)
[2018-09-06] MEDS: INSULIN GLARGINE SOLOSTAR 100 UNITS/ML 3 ML PEN SC SCH (09:17)
[2018-09-06] MEDS: INSULIN ASPART 100 UNITS/ML 3 ML PEN SC SCH ×3 (09:19→18:25)
[2018-09-06] MEDS: NYSTATIN POWDER 15GM BTL EXT SCH ×2 (10:34→13:31)
[2018-09-06] MEDS: NYSTATIN/TRIAMCIN CR 15 GM TUBE EXT SCH (10:34)
[2018-09-06] MEDS: MENTHOL-ZINC OXIDE 360 APPLN/120 GM TUBE EXT SCH ×2 (10:36→13:32)
[2018-09-06] MEDS: NYSTATIN CR 15 GM TUBE EXT SCH (10:37)
[2018-09-06 11:57] VITALS: TEMP 98.1
--- NOTE | 2018-09-06 14:18 | Hospitalist Progress Note ---
Date of Service September 06, 2018 Assessment & Plan (1) Hip fracture, left: Intertrochanteric fracture of left hip secondary to mechanical fall. Repair performed by Dr. Nunez on 08/31/18. Postoperative course complicated by hypotension and acute blood loss anemia. Participating in PT and OT. (2) Acute blood loss anemia: Hemoglobin fell from 9.7 on admission to 7.3 postoperatively. Acute blood loss anemia secondary to hip fracture. Transfused with 3 units of packed RBCs. Hemoglobin 09/05 was 9.0. (3) Hypotension: Postoperative hypotension, resolved after receiving IV fluids. (4) UTI (urinary tract infection): Urinalysis on 09/01 demonstrated leukocyte esterase, WBCs, epithelial cells, no bacteria. Urine culture grew greater than 100,000 colonies of alpha strep, not enterococcus as well as 50,000 colonies of Enterococcus faecalis. Received intravenous piperacillin/tazobactam. Transitioned to amoxicillin per sensitivities. (5) CHF (congestive heart failure): History of left ventricular diastolic heart failure. Postoperative CHF secondary to IV fluids and blood transfusions. Acute on chronic left ventricular diastolic heart failure. Follow-up chest x-ray on 09/04 showed improving CHF. Now oxygenating well on room air. (6) Coronary artery disease: Continue aspirin, metoprolol, statin. (7) Paroxysmal atrial fibrillation: Continue metoprolol. Not anticoagulated because of multiple falls. (8) Diabetes mellitus type 2, controlled: DM type 2, generally well controlled on metformin + Lantus. Hgb A1C = 7.3. Metformin held during hospital stay. Received Lantus + NovoLog per protocol. FBS day of discharge = 153. Will continue to hold metformin until renal function has improved. (9) Constipation: Bowel regimen ordered. 2 BM's 09/05. (10) DVT prophylaxis: SCDs and aspirin ordered. (11) Discharge planning issues: Anticipated need for skilled care. Case Management consulted. Arrangements being made for transfer to [facility] for skilled care. Family Medicine follow-up with Dr. Núñez. Orthopedics follow-up with Dr. Nunez Daughter given update by phone. Subjective Recheck for hip fracture and other problems. Patient seen in her room around 1330. 2 bowel movements last evening after receiving suppository. Chronic back pain; not too much hip pain. No fever. No chest pain. No cough or SOB. No nausea or vomiting. No dysuria. Physical Exam Vital Signs (Past 24 Hours): Last Vital Signs Temp 36.7 C 09/06/18 11:56 Pulse 71 09/06/18 11:56 Resp 16 09/06/18 11:56 BP 131/61 09/06/18 11:56 Pulse Ox 92 09/06/18 11:56 Constitutional: no acute distress Respiratory: no respiratory distress Auscultation: lungs clear to auscultation bilaterally Cardiovascular: Rate/Rhythm: regular rate and regular rhythm Vessels: no JVD Extremities: no calf tenderness and no edema Gastrointestinal (Abdomen): normal bowel sounds, soft, nontender, no hepatosplenomegaly Musculoskeletal: left hip dressing clean & dry Skin: no rashes, warm and dry Psychiatric: Orientation: alert and oriented x 3
--- NOTE | 2018-09-06 14:50 | Discharge Summary ---
Date of Service Date of admission: 08/29/18 Date of discharge: 09/06/18 Admission HPI Per Admitting Provider History obtained from patient and records. Medical history significant for chronic diastolic heart failure (EF 55-60%, TTE 2013), CAD status post CABG, complete heart block status post PPM, history PAF (not on anticoagulation secondary to recurrent multiple falls S per records), PVD, DM 2, insulin requiring, history PE as per records, chronic anemia, baseline hemoglobin 9, essential tremors. Recent confinement April 2013 for respiratory failure, sepsis. Today patient had a mechanical fall causing her to land on her left side. Patient subsequently noted excruciating left hip pain. No chest pain, no S OB, no syncope, no headache. Patient brought to [facility] ER. Left hip x-ray showed nondisplaced intertrochanteric left femoral fracture. Patient family requested for patient to be transferred to [facility] for Orthopedics evaluation. Medical History as above Surgical History : CABG, PPM, cataract surgery, appendectomy, back surgery, laser brachioplasty, bladder bladder/vaginal/rectocele repair, sternal debridement, SIMON Family History : Heart disease Personal/Social history : Non-smoker, no EtOH intake, retired [employer], [facility] resident Functionality: No unusual chest pain, S OB at rest/on exertion, during usual ADLs Admission Exam Per Admitting Provider GENERAL: Comfortable, pleasant, no respiratory distress SKIN: Pallor, warm HEENT: Pale palpebral conjunctivae, no ptosis, chronic facial asymmetry, dry buccal mucosa NECK : Supple, no tenderness CHEST : CTA, sternal scar, no tenderness HEART : RRR, no obvious murmurs ABDOMEN: Some distention, nontender EXTREMITIES : Left hip supported by pillow, left hip tenderness, no other conspicuous deformities noted NEUROLOGIC : Coherent, chronic facial asymmetry, chronic rest tremors Principal Diagnosis left hip fracture acute blood loss anemia acute on chronic left ventricular diastolic CHF Discharge Data Allergies Allergy/AdvReac Type Severity Reaction Status Date / Time codeine Allergy Unknown REPORTED Verified 08/30/18 00:35 BY PT gabapentin Allergy Unknown unknown Verified 08/30/18 00:35 levodopa Allergy Unknown unknown Verified 08/30/18 00:35 morphine Allergy Unknown unk Verified 08/29/18 21:22 NSAIDS (Non-Steroidal Allergy Unknown unknown Verified 08/30/18 00:35 Anti-Inflamma tramadol Allergy Unknown PT REPORTS Verified 08/30/18 00:35 yellow dye Allergy Unknown unknown Verified 08/29/18 21:22 oxycodone AdvReac Unknown ams as per Verified 09/01/18 04:07 px Consultations 08/29/18 23:05 Consult Case Management - Discharge Planning Routine 08/30/18 01:22 Consult Case Management - Discharge Planning Routine 08/30/18 02:50 Consult Orthopedic Surgery Routine 08/30/18 20:02 Consult Cardiology Routine Procedures Performed Operation Date: 08/31/18 07:00 Actual Procedures p Left Hip Troch Nail(Left) - Sam Nunez, Ordered Studies 08/31/18 14:00 FL fluoroscopy <1hr Routine FL hip LT 2-3V Routine Hospital Course (1) Hip fracture, left: Intertrochanteric fracture of left hip secondary to mechanical fall. Repair performed by Dr. Nunez on 08/31/18. Postoperative course complicated by hypotension and acute blood loss anemia. Participating in PT and OT. (2) Acute blood loss anemia: Hemoglobin fell from 9.7 on admission to 7.3 postoperatively. Acute blood loss anemia secondary to hip fracture. Transfused with 3 units of packed RBCs. Hemoglobin 09/05 was 9.0. (3) Hypotension: Postoperative hypotension, resolved after receiving IV fluids. (4) UTI (urinary tract infection): Urinalysis on 09/01 demonstrated leukocyte esterase, WBCs, epithelial cells, no bacteria. Urine culture grew greater than 100,000 colonies of alpha strep, not enterococcus as well as 50,000 colonies of Enterococcus faecalis. Received intravenous piperacillin/tazobactam. Transitioned to amoxicillin per sensitivities. (5) CHF (congestive heart failure): History of left ventricular diastolic heart failure. Postoperative CHF secondary to IV fluids and blood transfusions. Acute on chronic left ventricular diastolic heart failure. Follow-up chest x-ray on 09/04 showed improving CHF. Now oxygenating well on room air. (6) Coronary artery disease: Continue aspirin, metoprolol, statin. (7) Paroxysmal atrial fibrillation: Continue metoprolol. Not anticoagulated because of multiple falls. (8) Diabetes mellitus type 2, controlled: DM type 2, generally well controlled on metformin + Lantus. Hgb A1C = 7.3. Metformin held during hospital stay. Received Lantus + NovoLog per protocol. FBS day of discharge = 153. Will continue to hold metformin until renal function has improved. (9) Constipation: Bowel regimen ordered. 2 BM's 09/05. (10) DVT prophylaxis: SCDs and aspirin ordered. (11) Discharge planning issues: Anticipated need for skilled care. Case Management consulted. Arrangements being made for transfer to [facility] for skilled care. Family Medicine follow-up with Dr. Núñez. Orthopedics follow-up with Dr. Nunez Daughter given update by phone. Total Time Total Time Spent Total Time Spent (In Minutes): 45 Discharge Plan Discharge Items Patient Disposition: Transfer Long Term Fac Reason For Visit: LT HIP FRACTURE Discharge Diagnosis: intertrochanteric fracture left hip Condition: Fair Discharge Goals: Decrease discomfort and Improve disease control Activity: Per 'Additional Instructions' section Activity Comment: As tolerated with assistance; partial weight bearing LLE Weightbearing Comment: partial weight bearing LLE Non-emergency contact: Primary Care Provider, Hospitalist and Surgeon Call non-emergency contact if: you have any medication questions, your symptoms worsen and your temperature is above 101 Follow-up/Referrals: Kash Núñez MD [Primary Care Provider] - Sam Nunez DO [Surgeon] - (Please call office for an appointment in 1 week.) Diet: Carb Consistent or DM2 and Heart Healthy Addtl Provider Instructions: Fall precautions. Skin / heel precautions. Please check CBC and BMP twice a week until stable. Thank you for receiving this patient in transfer. Please call if you have any questions. Sam Hearnlulu Prescriptions: New aspirin 325 mg Tablet,Delayed Release (Dr/Ec) 325 mg PO QAM 28 Days Qty: 28 RF: 0 amoxicillin 250 mg Capsule 250 mg PO Q12H Qty: 3 RF: 0 Lantus Solostar U-100 Insulin 100 unit/mL (3 mL) Insulin Pen 8 unit SC BID 30 Days Qty: 4.8 RF: 0 Novolog Flexpen U-100 Insulin 100 unit/mL (3 mL) insulin pen 2 units subcut TIDM 30 Days Qty: 0.6 RF: 0 Continued nystatin 100,000 unit/gram Cream 1 applic TOPICAL BID RF: 0 ranitidine HCl 150 mg tablet 150 mg PO DAILY PRN (Reason: upset stomach) RF: 0 ranitidine HCl 150 mg tablet 150 mg PO DAILY RF: 0 omeprazole 20 mg Tablet,Delayed Release (Dr/Ec) 20 mg PO QAM RF: 0 Linzess 145 mcg capsule 145 mcg PO DAILY PRN (Reason: Constipation) RF: 0 venlafaxine 75 mg capsule,extended release 24hr 75 mg PO DAILY RF: 0 metoprolol succinate 50 mg tablet extended release 24 hr 50 mg PO DAILY RF: 0 montelukast 10 mg tablet 10 mg PO DAILY RF: 0 atorvastatin 40 mg Tablet 40 mg PO DAILY RF: 0 acetaminophen 325 mg Tablet 650 mg PO Q4 MDD 3g/24hr PRN (Reason: mild pain) RF: 0 oxybutynin chloride 15 mg Tablet Extended Release 24hr 15 mg PO DAILY RF: 0 magnesium hydroxide [Milk of Magnesia] 400 mg/5 mL Suspension 15 - 30 ml PO DAILY PRN (Reason: Constipation) RF: 0 losartan 25 mg Tablet 25 mg PO DAILY RF: 0 cholecalciferol (vitamin D3) [Vitamin D3] 1,000 unit Capsule 2,000 unit PO DAILY RF: 0 white petrolatum-mineral oil Ointment 1 applic OPR QPM RF: 0 sennosides-docusate sodium [Senna-S] 8.6-50 mg Tablet 2 tab PO HS RF: 0 bisacodyl [Dulcolax (bisacodyl)] 10 mg Suppository [address] DAILY MDD 1 supp per week PRN (Reason: Constipation) RF: 0 nystatin 100,000 unit/gram Cream 1 applic TOPICAL BID PRN (Reason: excoriation) RF: 0 nystatin-triamcinolone 100,000-0.1 unit/g-% Cream 1 applic TOPICAL BID RF: 0 nystatin 100,000 unit/gram Powder 1 applic TOPICAL TID RF: 0 polyethylene glycol 3350 [Miralax] 17 gram/dose Powder 17 g PO DAILY PRN (Reason: Constipation) RF: 0 fluticasone propionate [Flonase Allergy Relief] 50 mcg/actuation [place],Suspension 2 spray INTRANASAL DAILY RF: 0 loratadine 10 mg Tablet 10 mg PO HS RF: 0 bisacodyl 5 mg Tablet 5 mg PO DAILY RF: 0 diclofenac sodium 1 % gel 4 g topical BID RF: 0 menthol-zinc oxide 0.44-20.6 % Ointment 1 applic TOPICAL TID RF: 0 Clovis-Sequels (iron-vit c) 200 mg (65 mg iron)-25 mg Tablet Extended Release 1 tab PO DAILY RF: 0 Refresh Classic (PF) 1.4-0.6 % Dropperette 1 drp OPHTHALMIC (EYE) UD PRN (Reason: Dry Eye(S)) RF: 0 aspirin [Aspir-81] 81 mg Tablet,Delayed Release (Dr/Ec) 81 mg PO DAILY Qty: 0 RF: 0 Discontinued metformin 1,000 mg tablet 1,000 mg PO BIDM RF: 0 ibuprofen 600 mg Tablet 600 mg PO TID PRN (Reason: Pain) RF: 0 Lantus U-100 Insulin 100 unit/mL solution 16 unit subcut HS RF: 0 Stand-Alone Forms: [facility] Orders: Discharge Order (Routine); Ordered 09/06/18 Ordered By: Sam Benavidez Skilled Items Patient informed of condition?: Yes DNR: No Discharge Level of Care: Skilled Communicable Disease: No Discharge Prognosis: Improving Admission Data Admit Date/Time: 08/29/18 20:47 Attending Provider: Sam Benavidez Admit Provider: Raf Gayle Primary Care Provider: Kash Núñez Other Providers: Raf Gayle ; Sam Nunez ; Alexei Garay ; Juan Francisco Lynch ; Lc Henderson ; Tim Jimenez ; MahamedVamsi marrero ; Jayesh Dominique ; Andra Uribe ; Jaja Khan ; Semaj Luis Service: Surgical Services Other Interventions: Discharge Summary Assessment (RN) Last Done: 09/06/18 15:21
[2018-09-06 15:17] VITALS: PULSE 68; O2SAT 96
[2018-09-06 16:14] VITALS: BP 111/64
--- NOTE | 2018-09-10 06:49 | Coding Query ---
CODING QUERY To promote full compliance with coding requirements relating to patient care, provider participation is requested in all cases of information coder uncertainty. Please assist us with the question(s) below: Coding Question(s): This patient was admitted with a left intertrochanteric hip fracture and a history of osteoporosis. Please document below the cause/type of this fracture. According to ICD-10-CM coding guidelines an osteoporotic fracture is defined as "Any patient with known osteoporosis who suffers a fracture, even if the patient had a minor fall or trauma, if that fall or trauma would not usually break a normal, healthy bone." Physician's Response(s): ( ) Traumatic fracture ( x ) Osteoporotic fracture ( ) Other (please specify) ( ) Unable to determine Thank you Humera Garzon Principal Diagnosis: "that condition established after study, to be chiefly responsible for occasioning the admission of the patient to the hospital for care." Co-Existing Principal Diagnosis: "when two or more diagnoses equally meet the criteria for principal diagnosis as determined by the circumstances of admission, diagnostic work up, and/or therapy provided, and the Alphabetic Index, Tabular List, or another coding guideline does not provide sequencing direction, any one of the diagnoses may be sequenced first." "When the physician has documented what appears to be a current diagnosis in the body of the record, but has not included the diagnosis in the final diagnostic statement, the physician should be asked whether the diagnosis should be added." (Source Coding [facility] 2 QTR90. p3-4) HAKAN
== END 2018-09-06 18:40 | DRG 480 ==
LOC: 3N 20:47 → SUATTDRO 20:47 → 1E 09-01 12:25 → 3N 09-02 16:23
DX: G93.49 Other encephalopathy; B95.4 Other streptococcus as the cause of diseases classified elsewhere; B95.2 Enterococcus as the cause of diseases classified elsewhere; Z79.82 Long term (current) use of aspirin; I25.10 Atherosclerotic heart disease of native coronary artery without angina pectoris; Z88.6 Allergy status to analgesic agent; I95.81 Postprocedural hypotension; N39.0 Urinary tract infection, site not specified; D62 Acute posthemorrhagic anemia; Z95.0 Presence of cardiac pacemaker; Z95.1 Presence of aortocoronary bypass graft; Z91.048 Other nonmedicinal substance allergy status; Z79.4 Long term (current) use of insulin; Z86.711 Personal history of pulmonary embolism; I48.0 Paroxysmal atrial fibrillation; Z79.899 Other long term (current) drug therapy; E11.51 Type 2 diabetes mellitus with diabetic peripheral angiopathy without gangrene; K21.9 Gastro-esophageal reflux disease without esophagitis; K59.00 Constipation, unspecified; M80.052A Age-related osteoporosis with current pathological fracture, left femur, initial encounter for fracture; E11.22 Type 2 diabetes mellitus with diabetic chronic kidney disease; E78.5 Hyperlipidemia, unspecified; Z88.8 Allergy status to other drugs, medicaments and biological substances; W19.XXXA Unspecified fall, initial encounter; Z91.81 History of falling; Z88.5 Allergy status to narcotic agent; N18.2 Chronic kidney disease, stage 2 (mild); I50.33 Acute on chronic diastolic (congestive) heart failure; I13.0 Hypertensive heart and chronic kidney disease with heart failure and stage 1 through stage 4 chronic kidney disease, or unspecified chronic kidney disease; D64.9 Anemia, unspecified; Z86.79 Personal history of other diseases of the circulatory system